=== PATIENT | male | born 1950 | race Caucasian/White ===

== ENCOUNTER 2019-12-26 07:38 | Outpatient (REF) | payer MEDICARE, SELFPAY ==
[2019-12-26 08:25] LABS: MANUAL DIFF FLAG NO
[2019-12-26 08:29] LABS: Basophils Percent Auto 0.7 % (0-2); Eosinophils Absolute Auto 0.2 X10*3/uL (0.0-0.4); Eosinophils Percent Auto 5.4 % (0-4); Hematocrit 42.4 % (42-52); Hemoglobin 14.6 g/dl (14.0-18.0); Imm Gran Abs Auto 0.01 X10*3/uL (0.00-0.03); Imm Gran Pct Auto 0.2 % (0.0-0.4); Lymphocytes Absolute Auto 1.8 X10*3/uL (1.2-4.9); Mean Corpuscular HGB Conc 34.4 g/dl (31.0-36.0); Mean Corpuscular Hemoglobin 31.5 pg (27.0-33.0); Mean Corpuscular Volume 91.6 fL (80-98); Mean Platelet Volume 9.7 fL (9.4-12.4); Monocytes Absolute Auto 0.4 X10*3/uL (0.1-1.2); Monocytes Percent Auto 9.3 % (2-11); Neutrophils Percent Auto 44.4 % (45-73); Platelet Count 198 X10*3/uL (160-400); Red Blood Count 4.63 X10*6/uL (4.60-5.80); Red Cell Distribution Width 11.6 % (11.0-16.0); White Blood Count 4.4 X10*3/uL (4.8-10.8)
[2019-12-26 08:42] LABS: Alanine Aminotransferase 26 U/L (0-40); Alkaline Phosphatase 63 U/L (39-117); Anion Gap 12 (12-20); Aspartate Amino Transferase 15 U/L (5-37); Bilirubin Total 0.4 mg/dL (0.0-1.0); Blood Urea Nitrogen 15 mg/dL (9-16); Calcium 8.5 mg/dL (8.4-10.2); Carbon Dioxide 25 mmol/L (22-29); Chloride 106 mmol/L (96-108); Cholesterol 129 mg/dL; Estimated Glomerular Filt Rate > 60; Glucose Fasting 213 mg/dL (60-99); HDL Cholesterol 40 mg/dL; LDL Cholesterol Calculated 66 mg/dl; Potassium 4.2 mmol/l (3.3-5.1); Sodium 139 mmol/L (135-145); Total Protein 6.7 g/dL (6.5-8.0); Triglycerides 115 mg/dL
[2019-12-26 08:45] LABS: Glucose Urine UA 500 MG/DL (NEG); Leukocyte Esterase Urine NEG (NEG); Nitrite Urine NEG (NEG); Specific Gravity - Urine 1.025 (1.005-1.025); Urine Blood 1+ (NEG); Urine Ketones NEG (NEG); Urine Protein NEG (NEG-TRACE)
[2019-12-26 08:48] LABS: Appearance Urine HAZY; Color Urine YELLOW
[2019-12-26 08:59] LABS: Mucus Urine 1+ /LPF; Squamous Epithelial Cell Urine TRACE /LPF; WBC Urine 0 /HPF (0-4)
[2019-12-26 09:06] LABS: TSH reflex Free T4 0.75 mIU/mL (0.32-4.0)
[2019-12-26 09:27] LABS: Creatinine Urine 114.65 mg/dL; Microalbum/Creatinine Ratio Ur 8.7 ug/mg cr
== END 2019-12-26 07:39 | disposition home or self-care (01) ==
LOC: HO.LAB 07:38
PROVIDERS: Visit Provider Internal Medicine
DX: E11.65 Type 2 diabetes mellitus with hyperglycemia (principal); I10 Essential (primary) hypertension; E78.00 Pure hypercholesterolemia, unspecified; E66.9 Obesity, unspecified
CPT/HCPCS: 36415; 80053; 80061; 81001; 82043; 84443; 85025

== ENCOUNTER 2020-01-03 14:42 | Outpatient (REF) | payer MEDICARE, SELFPAY ==
--- NOTE | 2020-01-03 14:47 | XR_ITS ---
EXAMINATION: XR CHEST CLINICAL INFORMATION: Chest pain COMPARISON: January 23, 2019 and studies dating back to March 16, 2006 TECHNIQUE: 2 views of the chest were obtained. FINDINGS: There is no evidence of acute parenchymal disease, pneumothorax, or pleural effusion. Heart normal size. No evidence of pulmonary edema. Calcified granuloma seen in the left apex. There is mild scoliosis of the thoracic spine. XR/XR chest 2V IMPRESSION: No acute disease.
--- NOTE | 2020-01-03 15:04 | ECG_ITS ---
Test Reason : CP Blood Pressure : / mmHG Vent. Rate : 073 BPM Atrial Rate : 073 BPM P-R Int : 192 ms QRS Dur : 082 ms QT Int : 394 ms P-R-T Axes : 050 033 052 degrees QTc Int : 434 ms Normal sinus rhythm Normal ECG When compared with ECG of 31-AUG-2010 15:49, Minimal criteria for Inferior infarct are no longer Present Referred By: Juan Art Electronically Signed By:CHARLIE MEZA MD
== END 2020-01-03 14:43 | disposition home or self-care (01) ==
LOC: HO.XRAY 14:42
PROVIDERS: PCP Internal Medicine; Visit Provider Internal Medicine
DX: R07.9 Chest pain, unspecified (principal); I10 Essential (primary) hypertension; E11.65 Type 2 diabetes mellitus with hyperglycemia
CPT/HCPCS: 71046; 93005

== ENCOUNTER 2020-03-02 12:28 | Outpatient (REF) | payer MEDICARE, SELFPAY ==
--- NOTE | 2020-03-02 12:39 | XR_ITS ---
EXAMINATION: RIGHT SHOULDER X-RAY CLINICAL INFORMATION: Essential primary hypertension COMPARISON: Previous chest x-rays most recent December 2019 TECHNIQUE: Two-view chest FINDINGS: The cardiac and mediastinal contours are stable. There is a small 3 x 6 mm nodular density at the left lung apex that overlies the left posterior fourth rib. This is stable from old exams. The lungs are otherwise clear. There is no pleural effusion or pneumothorax. There are degenerative changes of the spine. XR/XR shoulder RT min 2V IMPRESSION: No evidence for acute disease in the chest. EXAMINATION: Right shoulder x-ray CLINICAL INFORMATION: Essential primary hypertension COMPARISON: None. TECHNIQUE: 4 views of the right shoulder FINDINGS: Bone alignment is normal. No fracture or dislocation is seen. The glenohumeral joint is normal. There is mild arthritis at the acromioclavicular joint. Soft tissues are unremarkable. IMPRESSION: Mild arthritis at the acromioclavicular joint.
--- NOTE | 2020-03-02 12:39 | XR_ITS ---
EXAMINATION: RIGHT SHOULDER X-RAY CLINICAL INFORMATION: Essential primary hypertension COMPARISON: Previous chest x-rays most recent December 2019 TECHNIQUE: Two-view chest FINDINGS: The cardiac and mediastinal contours are stable. There is a small 3 x 6 mm nodular density at the left lung apex that overlies the left posterior fourth rib. This is stable from old exams. The lungs are otherwise clear. There is no pleural effusion or pneumothorax. There are degenerative changes of the spine. XR/XR chest 2V IMPRESSION: No evidence for acute disease in the chest. EXAMINATION: Right shoulder x-ray CLINICAL INFORMATION: Essential primary hypertension COMPARISON: None. TECHNIQUE: 4 views of the right shoulder FINDINGS: Bone alignment is normal. No fracture or dislocation is seen. The glenohumeral joint is normal. There is mild arthritis at the acromioclavicular joint. Soft tissues are unremarkable. IMPRESSION: Mild arthritis at the acromioclavicular joint.
== END 2020-03-02 12:29 | disposition home or self-care (01) ==
LOC: HO.XRAY 12:28
PROVIDERS: PCP Internal Medicine; Visit Provider Internal Medicine
DX: I10 Essential (primary) hypertension (principal)
CPT/HCPCS: 71046; 73030

== ENCOUNTER 2020-03-31 07:06 | Day surgery (SDC) | payer MEDICARE, SELFPAY ==
[2020-03-25 11:57] VITALS: BMI 31.4
--- NOTE | 2020-03-30 08:42 | HO.ANESPROP2 ---
HPI - Anesthesia Eval Consult details Narrative: 70yo M for Colonoscopy PMFSH Active Problems Active Problems: All Active Problems (Updated 03/02/20 @ 11:25 by Cosmo Napoles MD) Arthralgia of right shoulder region (Acute) Type 2 diabetes mellitus with hyperglycemia (Acute) Benign essential hypertension (Acute) Obesity (BMI 30-39.9) (Acute) Chronic pain syndrome (Acute) Pure hypercholesterolemia (Acute) Past Medical History Medical History (Updated 04/07/20 @ 09:21 by Cosmo Napoles MD) Benign essential hypertension Chronic pain syndrome Obesity (BMI 30-39.9) Pure hypercholesterolemia Type 2 diabetes mellitus with hyperglycemia Family History Family History Father No problems noted. Mother No problems noted. Sister In good health Son In good health Surgical History Surgical History History of cataract surgery Hx of colonoscopy Social History Social History Alcohol intake: never Smoking Status: Former smoker Meds Allergies Allergy/AdvReac Type Severity Reaction Status Date / Time No Known Allergies Allergy Verified 04/07/20 09:07 [No Known Allergies*] Home Medications Medication Instructions Recorded Confirmed Type metformin 1,000 mg tablet 1,000 mg PO BID 01/03/20 04/07/20 History blood sugar diagnostic #10 ea 04/07/20 04/07/20 History blood-glucose meter #1 ea 04/07/20 04/07/20 History glipizide 10 mg tablet 10 mg PO DAILY 04/07/20 04/07/20 History lisinopril 10 mg tablet 10 mg PO DAILY 04/07/20 04/07/20 History tramadol 50 mg tablet 50 mg PO BID PRN 04/07/20 04/07/20 History Exam Exam Date and Time: March 30, 2020 0842 Height,Weight and Vital Signs: Height 5 ft 6 in Weight 88.451 kg Assessment and Plan Assessment Anesthesia Assessment: Chart Reviewed
[2020-03-31 07:25] VITALS: BP 157/71; PULSE 95; RESP 16; TEMP 36.6; O2SAT 96
[2020-03-31] MEDS: Lactated Ringers 1,000 ML 100 ML IVCONT (07:26)
[2020-03-31 07:28] LABS: Glucose, Whole Blood 225 mg/dL (60-115)
--- NOTE | 2020-03-31 07:32 | PC.NURSE ---
ANIKA GIVEN FOR PRE RESULTS OF MALU CORNEJO
--- NOTE | 2020-03-31 07:33 | PC.NURSE ---
RESULTS FROM FLEET LIQUID YELLOW
--- NOTE | 2020-03-31 08:18 | MHC.SHP ---
Pre-Procedural Eval Section A The patient is an INPATIENT: No The History & Physical has been completed within 30 days and I have reviewed it.: No Section B Chief Complaint: Screening Details of Present Illness: Colon cancer screening, positive Cologuard test Relevant Family History (Specify if Yes): Yes Relevant Social History: Tobacco Use Present Medications: see Short Stay Collaborative assessment Medical History: Significant History (Obesity Diabetes Mellitus, not on insulin.. Hypertension on IBAN.. Hypercholestrolemia on statins.. Diabetic neuropathy on Neurontin.. Chronic pain from neuropathy.. Tobacco use disorder..) History of Previous Operations: Relevant previous surgery/procedure and date(s) (teeth extracted colonoscopy closer to [age] ) Allergies: Allergies Allergy/AdvReac Type Severity Reaction Status Date / Time No Known Allergies Allergy Verified 03/25/20 11:37 [No Known Allergies*] Review of Systems Sugical H&P ROS: Negative: Constitution, Cardiovascular, Respiratory and Gastrointestinal Exam Surgical H&P Exam: Normal: Heart, Normal: Lungs and Normal: Abdomen Plan Diagnosis/Plan: Unchanged I have reviewed the history and physical and performed a pertinent physical examination on my patient. No changes have occurred unless specified.
--- NOTE | 2020-03-31 08:20 | W.PM.OPN ---
Operative Note Operative Note Date of Service: 03/31/20 Narrative: Pre-op diagnosis: Colon cancer screening, positive Cologuard test Post-op diagnosis: other (Colon polyps, diverticulosis, hemorrhoids) Procedure: COLONOSCOPY TILL CECUM WITH BIOPSIES, SNARE POLYPECTOMY AND SUBMUCOSAL INJECTION Consent: Indications for the procedure and potential complications of bleeding, perforation, reaction to medications and missed diagnosis were discussed with the patient and informed consent was obtained. Instrument: Olympus PCF H 190 L variable stiffness pediatric colonoscope Monitoring: Vital signs and clinical assessment, intermittent blood pressure monitoring, continuous EKG monitoring, Pulse oximetry and Carbon Dioxide monitoring were done throughout the procedure. Colon withdrawl time was 30 minutes. Procedure: The patient was placed in the left lateral decubitis position and pre-procedure medications were administered. After a digital rectal examination of the ano-rectum, the video colonoscope was inserted into the rectum and advanced through the colon to the cecum. The colonoscope was slowly withdrawn in a retrograde panoramic fashion and the colon mucosa was carefully examined including a retroflexed view of the rectum. Findings and interventions are described below. Procedure Difficulty: Without difficulty Findings: Terminal Ileum: Not evaluated Cecum: Two 4-5 mm sessile polyp removed with a cold biopsy Ascending Colon: A 2.5 to 3 cms flat polyp raised with the 4 cc of Orise solution 9submucosal injection) and removed with a hot snare. Polypectomy site was marked with Meaghan ink. Transverse Colon: A 2 cms flat polyp in proximal transverse colon, raised with the 2 cc of Orise solution (submucosal injection) and removed with a hot snare. A 5 mm sessile polyp removed with the cold biopsy. Descending Colon: Moderate diverticulosis Sigmoid Colon: 10 mm sessile polyp removed with a hot snare. Moderate diverticulosis Rectum: Normal Ano-rectum: Moderate internal hemorrhoids Colon preparation: Good after copious irrigation and a Fleet enema. Impression and Post Procedure Diagnosis: Colonoscopy Findings: Six small to medium sized polyps removed Moderate diverticulosis seen in the left colon Moderate hemorrhoids on retroflexed exam. Plan: Await pathology results Patient has an appointment on 04/13/20 in the [facility] with Kanchan Pate NP. Repeat Colonoscopy interval based on path results - in 2 years if polyps are adenomatous and 10 years if polyps are hyperplastic. Above findings were reviewed with the patient and colon polyps and diverticulosis handouts were given in the discharge area Surgeon: Mauricio Hylton MD Anesthesia: MAC (DARRYL Najera & DR Bartlett) Estimated blood loss (mL): 0 Pathology: other (a: polyps cecum b: AC polyp at 100cm *orise gel used* c: transverse colon polyps *orise gel used* d: sigmoid polyp) Condition: stable Disposition: PACU
[2020-03-31 09:25] VITALS: BP 128/70; PULSE 81; RESP 16; TEMP 37.1; O2SAT 98
[2020-03-31 09:40] VITALS: BP 137/67; PULSE 80; RESP 18; TEMP 37.1; O2SAT 98
--- NOTE | 2020-03-31 09:47 | HO.POSTANES ---
Post Anesthesia Evaluation Post Anesthesia Evaluation Vital Signs: Vital Signs Temp Pulse Resp BP Pulse Ox 03/31/20 09:40 98.7 F 80 18 137/67 98 03/31/20 09:25 98.7 F 81 16 128/70 98 03/31/20 07:25 97.9 F 95 16 157/71 H 96 Anesthesia: Monitored Mental Status: Awake Pain Control: Satisfactory Nausea/Vomiting: None Hydration: Adequate Anesthesia-Related Issues: No Anes. Related Issues
== END 2020-03-31 10:05 | disposition home or self-care (01) ==
PROVIDERS: PCP Internal Medicine; Visit Provider Internal Medicine Gastroenterology
PROC: 0DJD8ZZ Inspection of Lower Intestinal Tract, Via Natural or Artificial Opening Endoscopic (ICD-10-PCS; CPT 45378; principal; 2020-03-31 08:10)
DX: Z12.11 Encounter for screening for malignant neoplasm of colon (principal); D12.0 Benign neoplasm of cecum; D12.3 Benign neoplasm of transverse colon; D12.5 Benign neoplasm of sigmoid colon; K57.30 Diverticulosis of large intestine without perforation or abscess without bleeding; K64.8 Other hemorrhoids; R19.5 Other fecal abnormalities; I10 Essential (primary) hypertension; E11.40 Type 2 diabetes mellitus with diabetic neuropathy, unspecified; Z79.84 Long term (current) use of oral hypoglycemic drugs; Z79.899 Other long term (current) drug therapy
CPT/HCPCS: 45380; 45385; 45381; 82947; 88305

== ENCOUNTER 2020-04-02 07:24 | Outpatient (REF) | payer MEDICARE, SELFPAY ==
[2020-04-02 08:09] LABS: MANUAL DIFF FLAG NO
[2020-04-02 08:20] LABS: Basophils Percent Auto 0.5 % (0-2); Eosinophils Absolute Auto 0.2 X10*3/uL (0.0-0.4); Eosinophils Percent Auto 3.6 % (0-4); Hematocrit 42.3 % (42-52); Hemoglobin 14.5 g/dl (14.0-18.0); Imm Gran Abs Auto 0.01 X10*3/uL (0.00-0.03); Imm Gran Pct Auto 0.2 % (0.0-0.4); Lymphocytes Absolute Auto 1.5 X10*3/uL (1.2-4.9); Lymphocytes Percent Auto 26.9 % (20-40); Mean Corpuscular HGB Conc 34.3 g/dl (31.0-36.0); Mean Corpuscular Hemoglobin 31.8 pg (27.0-33.0); Mean Corpuscular Volume 92.8 fL (80-98); Mean Platelet Volume 10.1 fL (9.4-12.4); Monocytes Absolute Auto 0.5 X10*3/uL (0.1-1.2); Monocytes Percent Auto 8.3 % (2-11); Neutrophils Absolute Auto 3.3 X10*3/uL (2.0-8.3); Neutrophils Percent Auto 60.5 % (45-73); Platelet Count 190 X10*3/uL (160-400); Red Blood Count 4.56 X10*6/uL (4.60-5.80); Red Cell Distribution Width 11.5 % (11.0-16.0); White Blood Count 5.5 X10*3/uL (4.8-10.8)
[2020-04-02 08:45] LABS: Alanine Aminotransferase 17 U/L (0-40); Albumin Level 4.1 g/dL (3.5-5.0); Alkaline Phosphatase 57 U/L (39-117); Anion Gap 11 (12-20); Aspartate Amino Transferase 11 U/L (5-37); Bilirubin Total 0.6 mg/dL (0.0-1.0); Blood Urea Nitrogen 20 mg/dL (9-16); Calcium 9.2 mg/dL (8.4-10.2); Carbon Dioxide 26 mmol/L (22-29); Chloride 107 mmol/L (96-108); Cholesterol 125 mg/dL; Estimated Glomerular Filt Rate > 60; Glucose Fasting 235 mg/dL (60-99); HDL Cholesterol 40 mg/dL; LDL Cholesterol Calculated 68 mg/dl; Potassium 4.2 mmol/L (3.3-5.1); Sodium 140 mmol/L (135-145); Total Protein 6.8 g/dL (6.5-8.0); Triglycerides 86 mg/dL
[2020-04-02 08:50] LABS: Glucose Urine UA 500 MG/DL (NEG); Leukocyte Esterase Urine NEG (NEG); Nitrite Urine NEG (NEG); Specific Gravity - Urine >= 1.030 (1.005-1.025); Urine Blood TRACE (NEG); Urine Ketones NEG (NEG); Urine Protein NEG (NEG-TRACE)
[2020-04-02 08:57] LABS: Appearance Urine CLEAR; Color Urine YELLOW
[2020-04-02 09:16] LABS: RBC Urine 0-2 /HPF (0); Squamous Epithelial Cell Urine TRACE /LPF; WBC Urine 0 /HPF (0-4)
[2020-04-02 09:17] LABS: Urine Talc Crystals TRACE /LPF
[2020-04-02 09:17] LABS: Erythrocyte Sedimentation Rate 7 MM/HR (0-15)
[2020-04-02 09:21] LABS: Creatinine Urine 125.39 mg/dL; Microalbum/Creatinine Ratio Ur 4.7 ug/mg cr
== END 2020-04-02 07:25 | disposition home or self-care (01) ==
LOC: HO.LAB 07:24
PROVIDERS: PCP Internal Medicine; Visit Provider Internal Medicine
DX: E78.00 Pure hypercholesterolemia, unspecified (principal); E11.65 Type 2 diabetes mellitus with hyperglycemia; I10 Essential (primary) hypertension; G89.4 Chronic pain syndrome; E66.9 Obesity, unspecified
CPT/HCPCS: 36415; 80053; 80061; 81001; 82043; 84443; 85025; 85652

== ENCOUNTER → 2020-04-14 09:07 | Outpatient (BNVA) | payer MEDICARE, SELFPAY | PROVIDERS: PCP Internal Medicine; Referring Provider Internal Medicine; Visit Provider Nurse Practitioner | CPT/HCPCS: Q3014 ==

== ENCOUNTER 2020-06-01 10:37 | Outpatient (REF) | payer MEDICARE, SELFPAY ==
[2020-06-01 14:25] LABS: Estimated Average Glucose 166 mg/dL; Hemoglobin A1c % 7.4 %
== END 2020-06-01 10:38 | disposition home or self-care (01) ==
LOC: HO.HMGCLDS 10:37
PROVIDERS: PCP Internal Medicine; Visit Provider Internal Medicine
DX: E11.65 Type 2 diabetes mellitus with hyperglycemia (principal)
CPT/HCPCS: 36415; 83036

== ENCOUNTER → 2020-07-09 07:53 | Outpatient (BNVA) | payer MEDICARE, SELFPAY | PROVIDERS: PCP Internal Medicine; Referring Provider Internal Medicine; Visit Provider Internal Medicine | DX: E11.65 Type 2 diabetes mellitus with hyperglycemia (principal); E78.5 Hyperlipidemia, unspecified; I10 Essential (primary) hypertension; E55.9 Vitamin D deficiency, unspecified; E04.9 Nontoxic goiter, unspecified | CPT/HCPCS: 82947; 99202 ==

== ENCOUNTER 2020-07-13 09:50 | Outpatient (REF) | payer MEDICARE, SELFPAY ==
[2020-07-13 13:46] LABS: Estimated Average Glucose 163 mg/dL; Hemoglobin A1c % 7.3 %
[2020-07-13 14:03] LABS: Alanine Aminotransferase 27 U/L (0-40); Albumin Level 4.1 g/dL (3.5-5.0); Alkaline Phosphatase 64 U/L (39-117); Anion Gap 10 (12-20); Aspartate Amino Transferase 12 U/L (5-37); Bilirubin Total 0.3 mg/dL (0.0-1.0); Blood Urea Nitrogen 19 mg/dL (9-16); Calcium 9.1 mg/dL (8.4-10.2); Carbon Dioxide 26 mmol/L (22-29); Chloride 108 mmol/L (96-108); Cholesterol 115 mg/dL; Estimated Glomerular Filt Rate > 60; Glucose Random 212 mg/dL (60-115); HDL Cholesterol 40 mg/dL; LDL Cholesterol Calculated 51 mg/dl; Potassium 4.1 mmol/L (3.3-5.1); Sodium 140 mmol/L (135-145); Total Protein 6.8 g/dL (6.5-8.0); Triglycerides 122 mg/dL
[2020-07-13 14:12] LABS: Creatinine Urine 121.85 mg/dL
[2020-07-13 14:21] LABS: Free T4 (Free Thyroxine) 0.95 ng/dL (0.71-1.85); Thyroid Stimulating Hormone 0.36 uIU/mL (0.32-4.0)
[2020-07-13 14:55] LABS: Vitamin B12 308 pg/mL (200-900)
[2020-07-14 16:57] LABS: LDL Cholesterol Direct 55 mg/dL (<100)
[2020-07-14 18:11] LABS: C Peptide 5.44 ng/mL (0.80-3.85)
[2020-07-14 18:56] LABS: Insulin Level Total 32.8 uIU/mL
[2020-07-18 19:52] LABS: Insulinoma associated 2 aatb <5.4 U/mL (<5.4)
[2020-07-18 20:16] LABS: Insulin Auto Antibody <0.4 U/mL (<0.4)
[2020-07-18 21:31] LABS: Glutamic acid decarboxylase Ab <5 IU/mL (<5)
[2020-07-22 00:02] LABS: Islet Cell Antibody Screen NEGATIVE (NEGATIVE)
== END 2020-07-13 09:51 | disposition home or self-care (01) ==
LOC: HO.10HDL 09:50
PROVIDERS: Visit Provider Internal Medicine
DX: E11.65 Type 2 diabetes mellitus with hyperglycemia (principal); E55.9 Vitamin D deficiency, unspecified; E04.9 Nontoxic goiter, unspecified
CPT/HCPCS: 36415; 80053; 80061; 82043; 82306; 82607; 83036; 83525; 83721; 84439; 84443; 84681; 86255; 86337; 86341

== ENCOUNTER 2020-07-21 10:15 | Outpatient (REF) | payer MEDICARE, SELFPAY ==
--- NOTE | ~2020-07-21 | US_ITS ---
EXAMINATION: US THYROID CLINICAL INFORMATION: Nontoxic goiter, unspecified COMPARISON: None TECHNIQUE: Linear transducer grayscale and color Doppler examination with attention to the region of the thyroid. FINDINGS: SIZE: Measurements of the thyroid lobes and nodules are given in sagittal, anteroposterior and transverse dimensions respectively. Right Thyroid Lobe: 5.3 x 2.1 x 2.4 cm, volume 13.6 mL. Parenchyma: The gland echotexture is homogeneous. Thyroid vascularity is normal. Left Thyroid Lobe: 4.8 x 2.7 x 2.1 cm, volume 13.8 mL. Parenchyma: The gland echotexture is homogeneous. Thyroid vascularity is normal. Isthmus: 0.6 cm in maximum AP dimension. Estimated total number of nodules greater than or equal to 1 cm: 0. License Registration Examiner nodules are described as follows: There is a tiny simple cyst and a colloid cyst midpole laterally in the right thyroid lobe. No nodules seen in either lobes. NODES: No lymphadenopathy is seen in the tissue surrounding the thyroid gland. US/US thyroid IMPRESSION: No thyroid nodules visualized. Both lobes are enlarged likely goiter. 2 small cysts seen in midpole right thyroid lobe. ACR TI-RADS RECOMMENDATION REFERENCE: Ultrasound-guided fine-needle aspiration, followup ultrasound, no further follow up. * TR1 (0 point) and TR 2 (2 points): No FNA or follow up * TR3 (3 points): FNA if more than or equal to 2.5 cm in maximum dimension, followup ultrasound in 1, 3 and 5 years if 1.5 to 2.4 cm in maximum dimension. * TR4 (4-6 points): FNA if more than or equal to 1.5 cm in maximum dimension, followup ultrasound in 1, 2, 3 and 5 years if 1 to 1.4 cm in maximum dimension. * TR5 (more than or equal to 7 points): FNA if more than or equal to 1 cm in maximum dimension, followup ultrasound every year for 5 years if 0.5 to 0.9 cm in maximum dimension. * TR3, TR4 or TR5 nodules that are below the size threshold for follow up receive no follow up.
== END 2020-07-21 10:16 | disposition home or self-care (01) ==
LOC: HO.US 10:15
PROVIDERS: PCP Internal Medicine; Visit Provider Internal Medicine
DX: E04.9 Nontoxic goiter, unspecified (principal)
CPT/HCPCS: 76536

== ENCOUNTER → 2020-08-07 10:54 | Outpatient (BNVA) | payer MEDICARE, SELFPAY | PROVIDERS: PCP Internal Medicine; Visit Provider Dietitian, Registered | DX: E11.65 Type 2 diabetes mellitus with hyperglycemia (principal) | CPT/HCPCS: 97802 ==

== ENCOUNTER 2020-08-12 08:20 | Outpatient (REF) | payer MEDICARE, SELFPAY ==
[2020-08-12 10:48] LABS: Glucose Urine UA >=1000 MG/DL (NEG); Leukocyte Esterase Urine NEG (NEG); Nitrite Urine NEG (NEG); Urine Blood TRACE (NEG); Urine Ketones NEG (NEG); Urine Protein NEG (NEG-TRACE)
[2020-08-12 10:49] LABS: Appearance Urine CLEAR; Color Urine STRAW
[2020-08-12 10:52] LABS: Alanine Aminotransferase 19 U/L (0-40); Albumin Level 4.4 g/dL (3.5-5.0); Alkaline Phosphatase 65 U/L (39-117); Anion Gap 12 (12-20); Aspartate Amino Transferase 13 U/L (5-37); Bilirubin Total 0.6 mg/dL (0.0-1.0); Blood Urea Nitrogen 19 mg/dL (9-16); Calcium 9.4 mg/dL (8.4-10.2); Carbon Dioxide 24 mmol/L (22-29); Chloride 110 mmol/L (96-108); Estimated Glomerular Filt Rate > 60; Glucose Random 162 mg/dL (60-115); Potassium 4.1 mmol/L (3.3-5.1); Sodium 142 mmol/L (135-145); Total Protein 7.2 g/dL (6.5-8.0)
[2020-08-12 11:02] LABS: RBC Urine 0-2 /HPF (0); WBC Urine 0 /HPF (0-4)
[2020-08-12 11:17] LABS: Creatinine Urine 66.88 mg/dL
== END 2020-08-12 08:21 | disposition home or self-care (01) ==
LOC: HO.10HDL 08:20
PROVIDERS: Internal Medicine; Visit Provider Internal Medicine
DX: E11.65 Type 2 diabetes mellitus with hyperglycemia (principal)
CPT/HCPCS: 36415; 80053; 81001

== ENCOUNTER 2020-09-01 06:29 | Outpatient (REF) | payer MEDICARE, SELFPAY ==
[2020-09-03 05:31] LABS: Lyme Abs Screen <0.90 index
== END 2020-09-01 06:30 | disposition home or self-care (01) ==
LOC: HO.LAB 06:29
PROVIDERS: PCP Internal Medicine; Visit Provider Internal Medicine
DX: A69.20 Lyme disease, unspecified (principal)
CPT/HCPCS: 36415; 86617; 86618

== ENCOUNTER → 2020-09-14 08:12 | Outpatient (BNVA) | payer MEDICARE, SELFPAY | PROVIDERS: PCP Internal Medicine; Visit Provider Internal Medicine | DX: E11.65 Type 2 diabetes mellitus with hyperglycemia (principal); E78.5 Hyperlipidemia, unspecified; E55.9 Vitamin D deficiency, unspecified; I10 Essential (primary) hypertension | CPT/HCPCS: 82947; 99212 ==

== ENCOUNTER 2021-01-07 10:31 | Outpatient (REF) | payer MEDICARE, SELFPAY ==
[2021-01-07 11:17] LABS: Hemoglobin 15.1 g/dl (14.0-18.0); Mean Corpuscular HGB Conc 33.6 g/dl (31.0-36.0); Mean Corpuscular Hemoglobin 30.7 pg (27.0-33.0); Mean Corpuscular Volume 91.5 fL (80.0-98.0); Mean Platelet Volume 10.3 fL (9.4-12.4); Platelet Count 197 X10*3/uL (160-400); Red Blood Count 4.92 X10*6/uL (4.60-5.80); Red Cell Distribution Width 11.9 % (11.0-16.0); White Blood Count 4.7 X10*3/uL (4.8-10.8)
[2021-01-07 11:26] LABS: Estimated Average Glucose 194 mg/dL; Hemoglobin A1c % 8.4 %
[2021-01-07 12:35] LABS: Appearance Urine CLEAR; Color Urine YELLOW; Glucose Urine UA >=1000 MG/DL (NEG); Leukocyte Esterase Urine NEG (NEG); Nitrite Urine NEG (NEG); Urine Blood TRACE (NEG); Urine Ketones NEG (NEG); Urine Protein NEG (NEG-TRACE)
[2021-01-07 13:13] LABS: RBC Urine 0-2 /HPF (0); WBC Urine 0-2 /HPF (0-4)
[2021-01-07 13:13] LABS: Alanine Aminotransferase 31 U/L (0-40); Albumin Level 4.1 g/dL (3.5-5.0); Alkaline Phosphatase 86 U/L (39-117); Anion Gap 11 (12-20); Aspartate Amino Transferase 16 U/L (5-37); Bilirubin Direct 0.2 mg/dL (0.0-0.5); Bilirubin Total 0.3 mg/dL (0.0-1.0); Blood Urea Nitrogen 18 mg/dL (9-16); Calcium 9.1 mg/dL (8.4-10.2); Carbon Dioxide 24 mmol/L (22-29); Chloride 109 mmol/L (96-108); Cholesterol 111 mg/dL; Estimated Glomerular Filt Rate > 60; Glucose Random 311 mg/dL (60-115); HDL Cholesterol 35 mg/dL; LDL Cholesterol Calculated 62 mg/dl; Potassium 4.7 mmol/L (3.3-5.1); Sodium 139 mmol/L (135-145); Triglycerides 70 mg/dL
[2021-01-07 13:14] LABS: Creatinine Urine 59.67 mg/dL; Microalbum/Creatinine Ratio Ur 8.3 ug/mg cr
[2021-01-07 13:24] LABS: Thyroid Stimulating Hormone 0.48 uIU/mL (0.32-4.0); Vitamin D 25-OH Total 20.2 ng/mL (>30)
[2021-01-07 13:28] LABS: Prostate Specific Antigen Scr 2.62 ng/mL (<0.05-4.0)
== END 2021-01-07 10:32 | disposition home or self-care (01) ==
LOC: HO.LAB 10:31
PROVIDERS: Internal Medicine; PCP Internal Medicine; Visit Provider Internal Medicine
DX: E11.65 Type 2 diabetes mellitus with hyperglycemia (principal); E55.9 Vitamin D deficiency, unspecified; E78.00 Pure hypercholesterolemia, unspecified
CPT/HCPCS: 36415; 80053; 80061; 81001; 82043; 82248; 82306; 83036; 84153; 84443; 85027

== ENCOUNTER 2021-04-13 07:17 | Outpatient (REF) | payer MEDICARE, SELFPAY ==
[2021-04-13 07:47] LABS: Hematocrit 45.1 % (42.0-52.0); Hemoglobin 15.5 g/dl (14.0-18.0); Mean Corpuscular HGB Conc 34.4 g/dl (31.0-36.0); Mean Corpuscular Hemoglobin 31.8 pg (27.0-33.0); Mean Corpuscular Volume 92.6 fL (80.0-98.0); Mean Platelet Volume 9.6 fL (9.4-12.4); Platelet Count 217 X10*3/uL (160-400); Red Blood Count 4.87 X10*6/uL (4.60-5.80); Red Cell Distribution Width 11.9 % (11.0-16.0); White Blood Count 5.2 X10*3/uL (4.8-10.8)
[2021-04-13 08:19] LABS: Estimated Average Glucose 163 mg/dL; Hemoglobin A1c % 7.3 %
[2021-04-13 08:48] LABS: Alanine Aminotransferase 18 U/L (0-40); Albumin Level 4.2 g/dL (3.5-5.0); Alkaline Phosphatase 65 U/L (39-117); Anion Gap 14 (12-20); Aspartate Amino Transferase 12 U/L (5-37); Bilirubin Total 0.5 mg/dL (0.0-1.0); Blood Urea Nitrogen 21 mg/dL (9-16); Calcium 9.6 mg/dL (8.4-10.2); Carbon Dioxide 23 mmol/L (22-29); Chloride 110 mmol/L (96-108); Cholesterol 97 mg/dL; Estimated Glomerular Filt Rate > 60; Glucose Fasting 173 mg/dL (60-99); HDL Cholesterol 33 mg/dL; LDL Cholesterol Calculated 49 mg/dl; Potassium 4.4 mmol/L (3.3-5.1); Sodium 143 mmol/L (135-145); Triglycerides 75 mg/dL
[2021-04-13 09:07] LABS: TSH reflex Free T4 0.61 uIU/mL (0.32-4.0)
[2021-04-13 10:11] LABS: Creatinine Urine 196.83 mg/dL; Microalbum/Creatinine Ratio Ur 7.1 ug/mg cr
== END 2021-04-13 07:18 | disposition home or self-care (01) ==
LOC: HO.LAB 07:17
PROVIDERS: PCP Internal Medicine; Visit Provider Internal Medicine
DX: E11.65 Type 2 diabetes mellitus with hyperglycemia (principal); E78.00 Pure hypercholesterolemia, unspecified; I10 Essential (primary) hypertension; G62.9 Polyneuropathy, unspecified
CPT/HCPCS: 36415; 80053; 80061; 82043; 83036; 84443; 85027

== ENCOUNTER → 2021-08-17 13:40 | Outpatient (BNVA) | payer MEDICARE, SELFPAY | PROVIDERS: PCP Internal Medicine; Visit Provider Psychiatry & Neurology Neurology | DX: G25.0 Essential tremor (principal); G62.9 Polyneuropathy, unspecified; M13.871 Other specified arthritis, right ankle and foot; Z79.891 Long term (current) use of opiate analgesic | CPT/HCPCS: 99202 ==

== ENCOUNTER 2021-10-08 08:43 | Outpatient (REF) | payer MEDICARE, SELFPAY ==
--- NOTE | ~2021-10-08 | FL_ITS ---
EXAMINATION: FL BARIUM SWALLOW CLINICAL INFORMATION: Dysphasia. COMPARISON: None TECHNIQUE: Barium swallow examination is performed using fluoroscopic evaluation in addition to multiple fluoroscopic spot views. The patient is imaged both upright and prone and using both thick and thin sulfate along with half inch diameter barium tablet. Fluoroscopy Time: 1.7 minutes. DAP: 5.172 Gycm2. Images: 33. FINDINGS: There is normal apposition of the focal cords while saying E. There is normal elevation of the soft palate while saying candy. There is no evidence of nasopharyngeal reflux or tracheal aspiration. No evidence of Zenker's diverticulum. There is normal esophageal motility without persistent stricture or tertiary contractions. No gastroesophageal reflux. No mucosal abnormality appreciated. Half-inch diameter barium tablet passed without difficulty. FL/FL barium swallow IMPRESSION: Essentially unremarkable esophagram.
== END 2021-10-08 08:44 | disposition home or self-care (01) ==
LOC: HO.XRAY 08:43
PROVIDERS: Visit Provider Internal Medicine
DX: R13.10 Dysphagia, unspecified (principal)
CPT/HCPCS: 74220

== ENCOUNTER 2021-10-29 08:38 | Outpatient (REF) | payer MEDICARE, SELFPAY ==
--- NOTE | 2021-10-29 13:52 | PFT_ITS ---
FLOWS: FEV1 71% of predicted at 1.98 L. FVC 95% of predicted at 3.66 L. FEV1 to FVC ratio of 0.54. Positive bronchodilator response. LUNG VOLUMES: Total lung capacity 97% of predicted at 6.29 L. Residual volume 127% of predicted at 2.99 L. Slow vital capacity 80% of predicted at 3.29 L. Expiratory reserve volume 77% of predicted at 0.82 L. Diffusion capacity is mildly decreased, diffusion capacity corrects to normal after adjustment for alveolar ventilation. IMPRESSION: Moderate obstructive ventilatory defect with positive bronchodilator response. Increased residual volume suggests air trapping. Kin Amador MD AP/MODL / [id number]
== END 2021-10-29 08:39 | disposition home or self-care (01) ==
LOC: HO.RESP 08:38
PROVIDERS: PCP Internal Medicine; Visit Provider Internal Medicine
DX: R05.9 Cough, unspecified (principal)
CPT/HCPCS: 94060; 94727; 94729

== ENCOUNTER 2021-11-06 08:13 | Outpatient (REF) | payer MEDICARE, SELFPAY ==
[2021-11-06 11:28] LABS: Estimated Average Glucose 143 mg/dL; Hemoglobin A1c % 6.6 %
[2021-11-06 11:40] LABS: Alanine Aminotransferase 26 U/L (0-40); Albumin Level 4.3 g/dL (3.5-5.0); Alkaline Phosphatase 72 U/L (39-117); Anion Gap 16 (12-20); Aspartate Amino Transferase 14 U/L (5-37); Bilirubin Total 0.5 mg/dL (0.0-1.0); Blood Urea Nitrogen 19 mg/dL (9-16); Calcium 9.7 mg/dL (8.4-10.2); Carbon Dioxide 25 mmol/L (22-29); Chloride 105 mmol/L (96-108); Cholesterol 106 mg/dL; Estimated Glomerular Filt Rate > 60; Glucose Fasting 180 mg/dL (60-99); HDL Cholesterol 37 mg/dL; LDL Cholesterol Calculated 57 mg/dl; Potassium 5.2 mmol/L (3.3-5.1); Sodium 141 mmol/L (135-145); Total Protein 7.1 g/dL (6.5-8.0); Triglycerides 63 mg/dL
[2021-11-06 11:50] LABS: Creatinine Urine 112.31 mg/dL; Microalbum/Creatinine Ratio Ur 7.1 ug/mg cr
== END 2021-11-06 08:14 | disposition home or self-care (01) ==
LOC: HO.HMGCLDS 08:13
PROVIDERS: PCP Internal Medicine; Visit Provider Internal Medicine
DX: R13.10 Dysphagia, unspecified (principal); I10 Essential (primary) hypertension; E78.5 Hyperlipidemia, unspecified; E11.65 Type 2 diabetes mellitus with hyperglycemia
CPT/HCPCS: 36415; 80053; 80061; 82043; 83036; 84443

== ENCOUNTER → 2021-11-16 10:13 | Outpatient (BNVA) | payer MEDICARE, SELFPAY | PROVIDERS: PCP Internal Medicine; Visit Provider Psychiatry & Neurology Neurology | DX: R25.1 Tremor, unspecified (principal); G62.9 Polyneuropathy, unspecified | CPT/HCPCS: 99212 ==

== ENCOUNTER 2021-11-26 10:39 | Outpatient (REF) | payer MEDICARE, SELFPAY ==
[2021-11-26 15:04] LABS: Folate 8.7 ng/mL (> or = 4.0); Vitamin B12 267 pg/mL (200-900)
== END 2021-11-26 10:40 | disposition home or self-care (01) ==
LOC: HO.HMGCLDS 10:39
PROVIDERS: PCP Internal Medicine; Visit Provider Internal Medicine
DX: Z00.00 Encounter for general adult medical examination without abnormal findings (principal); Z13.21 Encounter for screening for nutritional disorder
CPT/HCPCS: 36415; 82607; 82746

== ENCOUNTER 2022-01-21 07:35 | Outpatient (REF) | payer MEDICARE, SELFPAY ==
[2022-01-21 07:54] LABS: MANUAL DIFF FLAG NO
[2022-01-21 08:13] LABS: Basophils Percent Auto 0.8 % (0-2); Eosinophils Absolute Auto 0.2 X10*3/uL (0.0-0.4); Eosinophils Percent Auto 4.1 % (0-4); Hematocrit 47.1 % (42.0-52.0); Hemoglobin 15.8 g/dl (14.0-18.0); Imm Gran Abs Auto 0.02 X10*3/uL (0.00-0.03); Imm Gran Pct Auto 0.4 % (0.0-0.4); Lymphocytes Absolute Auto 1.6 X10*3/uL (1.2-4.9); Lymphocytes Percent Auto 30.8 % (20-40); Mean Corpuscular HGB Conc 33.5 g/dl (31.0-36.0); Mean Corpuscular Hemoglobin 31.2 pg (27.0-33.0); Mean Corpuscular Volume 93.1 fL (80.0-98.0); Mean Platelet Volume 9.7 fL (9.4-12.4); Monocytes Absolute Auto 0.5 X10*3/uL (0.1-1.2); Monocytes Percent Auto 8.8 % (2-11); Neutrophils Absolute Auto 2.9 x10*3/uL (2.0-8.3); Neutrophils Percent Auto 55.1 % (45-73); Platelet Count 218 X10*3/uL (160-400); Red Blood Count 5.06 X10*6/uL (4.60-5.80); Red Cell Distribution Width 11.8 % (11.0-16.0); White Blood Count 5.3 X10*3/uL (4.8-10.8)
[2022-01-21 08:29] LABS: Estimated Average Glucose 151 mg/dL; Hemoglobin A1c % 6.9 %
[2022-01-21 08:58] LABS: Alanine Aminotransferase 18 U/L (0-40); Albumin Level 4.2 g/dL (3.5-5.0); Alkaline Phosphatase 65 U/L (39-117); Anion Gap 10 (12-20); Aspartate Amino Transferase 10 U/L (5-37); Bilirubin Total 0.6 mg/dL (0.0-1.0); Blood Urea Nitrogen 18 mg/dL (9-16); Calcium 9.7 mg/dL (8.4-10.2); Carbon Dioxide 28 mmol/L (22-29); Chloride 105 mmol/L (96-108); Estimated Glomerular Filt Rate > 60; Glucose Fasting 138 mg/dL (60-99); Glucose Random 138 mg/dL (60-115); Potassium 4.7 mmol/L (3.3-5.1); Sodium 138 mmol/L (135-145); Total Protein 6.8 g/dL (6.5-8.0)
== END 2022-01-21 07:36 | disposition home or self-care (01) ==
LOC: HO.LAB 07:35
PROVIDERS: PCP Internal Medicine; Referring Provider Internal Medicine; Visit Provider Internal Medicine
DX: Z00.00 Encounter for general adult medical examination without abnormal findings (principal); I10 Essential (primary) hypertension; E11.65 Type 2 diabetes mellitus with hyperglycemia
CPT/HCPCS: 36415; 80048; 80053; 83036; 85025

== ENCOUNTER → 2022-03-03 09:24 | Outpatient (BNVA) | payer MEDICARE, SELFPAY | PROVIDERS: PCP Internal Medicine; Visit Provider Nurse Practitioner Family | DX: M79.604 Pain in right leg (principal); M79.605 Pain in left leg; E11.40 Type 2 diabetes mellitus with diabetic neuropathy, unspecified | CPT/HCPCS: 99202 ==

== ENCOUNTER → 2022-04-05 10:45 | Outpatient (BNVA) | payer MEDICARE, SELFPAY | PROVIDERS: PCP Internal Medicine; Visit Provider Nurse Practitioner Family | DX: E11.40 Type 2 diabetes mellitus with diabetic neuropathy, unspecified (principal); G89.4 Chronic pain syndrome | CPT/HCPCS: 99212; J7336 ==

== ENCOUNTER 2022-05-18 08:41 | Outpatient (REF) | payer MEDICARE, SELFPAY ==
--- NOTE | 2022-05-18 09:04 | EMG_ITS ---
Please see scanned EMG / Nerve Conduction Report. MTDD
== END 2022-05-18 08:42 | disposition home or self-care (01) ==
LOC: HO.NEURO 08:41
PROVIDERS: PCP Internal Medicine; Visit Provider Nurse Practitioner Family
DX: G62.9 Polyneuropathy, unspecified (principal); M79.604 Pain in right leg; M79.605 Pain in left leg
CPT/HCPCS: 95885; 95911

== ENCOUNTER → 2022-05-31 14:07 | Outpatient (BNVA) | payer MEDICARE, SELFPAY | PROVIDERS: PCP Internal Medicine; Visit Provider Nurse Practitioner Family | DX: G57.31 Lesion of lateral popliteal nerve, right lower limb (principal); E11.40 Type 2 diabetes mellitus with diabetic neuropathy, unspecified; G89.4 Chronic pain syndrome | CPT/HCPCS: 99212 ==

== ENCOUNTER → 2022-06-28 08:51 | Outpatient (BNVA) | payer MEDICARE, SELFPAY | PROVIDERS: PCP Internal Medicine; Visit Provider Nurse Practitioner Family | DX: E11.40 Type 2 diabetes mellitus with diabetic neuropathy, unspecified (principal); G57.31 Lesion of lateral popliteal nerve, right lower limb; G89.4 Chronic pain syndrome | CPT/HCPCS: 17999; 99212; J7336 ==

== ENCOUNTER 2022-07-21 10:42 | Outpatient (REF) | payer MEDICARE, SELFPAY ==
[2022-07-21 13:16] LABS: Appearance Urine Clear; Color Urine Yellow; Glucose Urine UA >=1000 mg/dL (Negative); Leukocyte Esterase Urine Negative (Negative); Nitrite Urine Negative (Negative); PH 5.5 (5.0-9.0); Specific Gravity - Urine >= 1.030 (1.005-1.025); UMIC TRIGGER UACC YES; Urine Blood Small (1+) (Negative); Urine Ketones Negative (Negative); Urine Protein Negative (Neg-Trace)
[2022-07-21 13:26] LABS: Bacteria Urine None Seen (None Seen); Hyaline Casts Urine 0-2 /LPF (0-2); RBC Urine 0-2 /HPF (0-2); Squamous Epithelial Cell Urine 0-2 /HPF (0-2); WBC Urine 0-5 /HPF (0-5)
== END 2022-07-21 10:43 | disposition home or self-care (01) ==
LOC: HO.LAB 10:42
PROVIDERS: PCP Internal Medicine; Visit Provider Internal Medicine
DX: R39.9 Unspecified symptoms and signs involving the genitourinary system (principal)
CPT/HCPCS: 81001; 81003

== ENCOUNTER 2022-08-18 13:19 | Outpatient (AMB) | payer MEDICARE, SELFPAY ==
--- NOTE | 2022-08-18 13:30 | MHC.PC.OV ---
Vital Signs 08/18/22 13:32 Height 5 ft 6 in Weight 181 lb BMI 29.2 BP 140/70 H Blood Pressure Location Lt brachial Position Sitting Pulse 78 Pulse Source Pulse Oximeter Pulse Oximetry (%) 98 Oxygen Delivery Method Room Air Intake Visit Reasons: High Blood Sugar Intake Note: Patient is here to follow up on DM. Kennel Assistant Required: No Rug Sizer: Not Required per policy Accompanied by: Self / Same As Patient Allergies No Known Allergies [No Known Allergies*] Allergy (Verified 09/02/22 16:44) Medication List - Last Reconciled 09/02/22 by Cosmo Napoles MD atorvastatin 40 mg PO DAILY 30 days blood sugar diagnostic As directed blood-glucose meter As directed dulaglutide (Trulicity) 3 mg (0.5 mL) subcut QWEEK 30 days gabapentin 300 mg PO BID glipizide 10 mg PO DAILY lisinopril 5 mg PO DAILY metformin 1,000 mg PO BID tramadol 50 mg PO DAILY Tobacco use date assessed: 08/18/22 Fall risk assessment: No Falls in past year Last assessed Fall Risk: 08/18/22 Dental Screening Dental Screen Date: 08/18/22 Did you have a dental visit in the last 12 months?: No Did you have a dental problem in the last 6 months where you did not have access to dental care?: No Was dental information given to patient?: No HPI High Blood Sugar HPI Details 72-year-old male presents to the office to discuss his chronic medical conditions. Patient does elevated blood sugars but is still reluctant to take the medications as prescribed. [facility] Medical History Benign essential hypertension Chronic pain syndrome Dysphagia Foot pain, right Goiter HLD (hyperlipidemia) HTN (hypertension) Lyme disease Neuropathy Obesity (BMI 30-39.9) Pure hypercholesterolemia Tremor Tubular adenoma of colon Type 2 diabetes mellitus with hyperglycemia Vitamin D deficiency Surgical History History of cataract surgery Hx of colonoscopy Family History Father No problems noted. Mother No problems noted. Sister In good health Son In good health Social History Housing: House Alcohol intake: current Alcohol intake frequency: does not drink Patient Tobacco Use Status: Former Tobacco user Quit Date: 2018 e-Cigarette/Vaping Use: Never Used Second Hand Smoke Exposure: No service: No Current occupational status: retired Cognitive needs: No Hearing needs: No Vision needs: No Questionnaire Thrive Questionnaire Date Thrive assessed: 08/18/22 I am a: Patient What is your living situation today?: I have a steady place to live Within the past 12 months, did the food you bought not last and you didn't have the money to get more?: Never true Within the past 12 months, did you worry whether your food would run out before you got money to buy more?: Never true Do you have trouble paying for medicines?: No Do you have trouble getting transportation to medical appointments?: No Do you have trouble paying your heating and electricity bill?: No Do you have trouble taking care of your child, family member or friend?: No Do you have trouble with day-to-day activities such as bathing, preparing meals, shopping, managing finances, etc.?: No Are you currently unemployed and looking for a job?: No Are you interested in more education?: No Currently or been in a relationship where the following occur: no concerns reported AUDIT C Alcohol Use Questionnaire (AUDIT-C) 1. How often do you have a drink containing alcohol?: Never Total Score: 0 GARRICK-7 AMB Questionnaire GARRICK-7 Date GARRICK - 7 assessed: 08/18/22 Feeling nervous, anxious, or on edge: 0 = Not at all Not being able to stop or control worryin = Not at all Worrying too much about different things: 0 = Not at all Trouble relaxin = Not at all Being so restless that it is hard to sit still: 0 = Not at all Becoming easily annoyed or irritable: 0 = Not at all Feeling afraid as if something awful might happen: 0 = Not at all Total GARRICK-7 score (0-4 normal; 5-9 mild; 10-14 moderate; 15-21 severe): 0 Source: Developed by Drs. Heriberto Gonzalez, Keerthi Reeves, Rolando Wilhelm and colleagues, with an educational murtaza from [employer]. Physical exam (Primary Care) Vital Signs: Last Vital Signs Pulse 78 08/18/22 13:32 BP 140/70 H 08/18/22 13:32 Pulse Ox 98 08/18/22 13:32 Oxygen Delivery Method Room Air 08/18/22 13:32 BMI result Body Mass Index 29.2 Tobacco/Smoking Status: Tobacco use Status Tobacco use date assessed 08/18/22 08/18/22 13:41 Patient Tobacco Use Status Former Tobacco user 08/18/22 13:41 e-Cigarette/Vaping Use Never Used 08/18/22 13:41 Thrive Assessment: Date of Thrive Assessment Date Thrive assessed 08/18/22 08/18/22 13:41 Currently or been in a relationship where the following occur: no concerns reported Const General: cooperative, healthy appearing and comfortable HENMT Head: Yes normal to inspection and Yes atraumatic Eyes General: appearance normal, both eyes and all related structures Neck Neck: Yes normal visual inspection and Yes full ROM Chest Chest palpation & inspection: normal inspection of the chest Resp Effort & Inspection: normal respiratory effort Auscultation: clear to auscultation bilaterally Cardio Jugular venous distension: no JVD Palpation: normal PMI Rate: regular rate Heart sounds: S1 normal heart sound present and S2 normal heart sound present GI Palpation (GI): Soft to palpation and No hepatosplenomegaly present Extrem General: Yes normal to inspection and Yes full ROM Results AMB Hemoglobin A1c AMB Hemoglobin A1c 8.2 % Last Edit by ELIAN Gillette on 08/18/22 13:44 Results Reviewed Results Reviewed: Laboratory Last Values Hgb A1c (Clinic) 8.2 % (4.0-6.0) H 08/18/22 13:29 Assessment and Plan Assessment & Plan (1) Type 2 diabetes mellitus with hyperglycemia: Comment: NIDDM, >10 years Code(s): E11.65 - Type 2 diabetes mellitus with hyperglycemia Qualifiers: Diabetes mellitus extermination inspector insulin use: without assisted use Qualified Code(s): E11.65 - Type 2 diabetes mellitus with hyperglycemia Plan: Results of the blood work and my recommendations on how to treated was suggested to the patient. He will decide on how he wants to take medications. Orders: Orders AMB Hemoglobin A1c 08/18/22 E11.65 - Type 2 diabetes mellitus with hyperglycemia Medications: New glipizide 10 mg PO DAILY 90 tabs 1RF Discontinued glipizide Discontinued Reason: Doctor's Order 5 mg PO DAILY 90 tabs 1RF Coding Level of Care Code Est Pt Level 3 (99318) Diagnoses Type 2 diabetes mellitus with hyperglycemia E11.65 Diabetes mellitus assisted insulin use: without assisted use
[2022-08-18 13:32] VITALS: BP 140/70; PULSE 78; O2SAT 98; BMI 29.2
== END 2022-08-18 14:03 | disposition home or self-care (01) ==
PROVIDERS: PCP Internal Medicine; Visit Provider Internal Medicine
DX: E11.65 Type 2 diabetes mellitus with hyperglycemia (principal)
CPT/HCPCS: 83036; 99213

== ENCOUNTER 2022-09-26 08:26 | Outpatient (AMB) | payer MEDICARE, SELFPAY ==
--- NOTE | 2022-09-26 08:39 | MHC.PC.OV ---
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 Accompanied by: Self / Same As Patient Allergies No Known Allergies [No Known Allergies*] Allergy (Verified 09/26/22 08:40) Medication List - Last Reconciled 09/26/22 by Pérez Taylor MD atorvastatin 40 mg PO DAILY 30 days blood sugar diagnostic As directed blood-glucose meter As directed dulaglutide (Trulicity) 3 mg (0.5 mL) subcut QWEEK 30 days gabapentin 300 mg PO BID glipizide 10 mg PO DAILY lisinopril 5 mg PO DAILY metformin 1,000 mg PO BID tramadol 50 mg PO DAILY Tobacco use date assessed: 08/18/22 Fall risk assessment: No Falls in past year Last assessed Fall Risk: 09/26/22 Dental Screening Dental Screen Date: 09/26/22 Did you have a dental visit in the last 12 months?: Yes Did you have a dental problem in the last 6 months where you did not have access to dental care?: No Was dental information given to patient?: Patient has dentist HPI Cataract surgery on left eye-09/28 HPI Details having a cataract repair; has DM HTN and hyperlipidemia; no history of CAD PFSH Medical History Benign essential hypertension Chronic pain syndrome Dysphagia Foot pain, right Goiter HLD (hyperlipidemia) HTN (hypertension) Lyme disease Neuropathy Obesity (BMI 30-39.9) Pure hypercholesterolemia Tremor Tubular adenoma of colon Type 2 diabetes mellitus with hyperglycemia Vitamin D deficiency Surgical History History of cataract surgery Hx of colonoscopy Family History Father No problems noted. Mother No problems noted. Sister In good health Son In good health Social History Housing: House Alcohol intake: current Alcohol intake frequency: does not drink Patient Tobacco Use Status: Former Tobacco user Quit Date: 2018 Tobacco use type: Cigarette e-Cigarette/Vaping Use: Never Used Second Hand Smoke Exposure: No service: No Current occupational status: retired Cognitive needs: No Hearing needs: No Vision needs: No Questionnaire PHQ-9 Over the last 2 weeks, how often have you been bothered by any of the following problems? 1. Little interest or pleasure in doing things: not at all 2. Feeling down, depressed, or hopeless: not at all 3. Trouble falling or staying asleep, or sleeping too much: not at all 4. Feeling tired or having little energy: not at all 5. Poor appetite or overeating: not at all 6. Feeling bad about yourself - or that you are a failure or have let yourself or your family down: not at all 7. Trouble concentrating on things, such as reading the newspaper or watching television: not at all 8. Moving or speaking so slowly that other people could have noticed. Or the opposite - being so fidgety or restless that you have been moving around a lot more than usual: not at all 9. Thoughts that you would be better off or of hurting yourself in some way: not at all Total score: 0 Depression Screening Interpretation: Negative Source: Developed by Drs. Heriberto Gonzalez, Rolando Zuniga and colleagues, with an educational murtaza from [employer]. Thrive Questionnaire Date Thrive assessed: 08/18/22 AUDIT C Alcohol Use Questionnaire (AUDIT-C) 1. How often do you have a drink containing alcohol?: Never Total Score: 0 GARRICK-7 AMB Questionnaire GARRICK-7 Date GARRICK - 7 assessed: 08/18/22 Source: Developed by Drs. Heriberto Gonzaelz, Rolando Zuniga and colleagues, with an educational murtaza from [employer]. Review of Systems Const Denies chills, Denies fatigue, Denies headache(s) and Denies weight loss Eyes Denies change in vision, Denies diplopia and Denies eye pain ENT Denies vertigo, Denies dizziness, Denies headache(s) and Denies nasal discharge Card Denies chest pain, Denies rapid heart rate and Denies dyspnea on exertion Resp Denies chest congestion, Denies cough, Denies pain with cough and Denies dyspnea on exertion GI Denies abdominal pain, Denies hematochezia and Denies change in bowel habits Musc Denies myalgias, Denies arthralgias and Denies joint swelling Skin/Breast Denies lesions and Denies unusual bruising Neuro Denies vertigo, Denies dizziness, Denies headache(s) and Denies focal weakness Endo Denies fatigue Physical exam (Primary Care) Vital Signs: Last Vital Signs Pulse 82 09/26/22 08:40 BP 128/68 09/26/22 08:40 Pulse Ox 97 09/26/22 08:40 Oxygen Delivery Method Room Air 09/26/22 08:40 BMI result Body Mass Index 28.6 Tobacco/Smoking Status: Tobacco use Status Tobacco use date assessed 08/18/22 09/26/22 08:39 Patient Tobacco Use Status Former Tobacco user 09/26/22 08:39 Tobacco use type Cigarette 09/26/22 08:43 e-Cigarette/Vaping Use Never Used 09/26/22 08:39 PHQ-9: PHQ-9 Score PHQ-9: Total score 0 09/26/22 08:43 Depression Screening Interpretation: Negative Thrive Assessment: Date of Thrive Assessment Date Thrive assessed 08/18/22 09/26/22 08:39 Const General: cooperative, healthy appearing and no acute distress Orientation/consciousness: oriented to person, oriented to place and oriented to time [facility] Head: Yes normal to inspection, Yes normocephalic and Yes atraumatic Mouth: Normal oral and palatal mucosa present and tongue normal Throat: Yes posterior oropharynx normal and Yes uvula midline Eyes General: appearance normal, both eyes and all related structures Neck Neck: Yes normal visual inspection, Yes full ROM and Yes no lymphadenopathy Thyroid: Thyroid normal Carotids: normal carotid upstroke Chest Chest palpation & inspection: normal inspection of the chest Resp Effort & Inspection: normal respiratory effort and able to speak in complete sentences Auscultation: clear to auscultation bilaterally Cardio Jugular venous distension: no JVD Palpation: normal PMI Rate: regular rate Rhythm: regular rhythm Heart sounds: S1 normal heart sound present and S2 normal heart sound present GI Inspection: Yes normal to inspection Palpation (GI): Soft to palpation and No hepatosplenomegaly present Auscultation: normal bowel sounds General: Yes no CVA tenderness Back/Spine/Pelvis Back: no CVA tenderness Skin General skin exam: no rashes or lesions noted Neuro General: oriented to person, oriented to place and oriented to time Extrem General: Yes normal to inspection and Yes full ROM Assessment and Plan Assessment & Plan (1) Preop exam for internal medicine: Code(s): Z01.818 - Encounter for other preprocedural examination Plan: low risk for cardiovascular complications; cleared for surgery (2) Pure hypercholesterolemia: Code(s): E78.00 - Pure hypercholesterolemia, unspecified Plan: stable; same rx (3) Benign essential hypertension: Code(s): I10 - Essential (primary) hypertension Plan: stable; same rx (4) Type 2 diabetes mellitus with hyperglycemia: Comment: NIDDM, >10 years Code(s): E11.65 - Type 2 diabetes mellitus with hyperglycemia Qualifiers: Diabetes mellitus senior care insulin use: without assistant terminal manager use Qualified Code(s): E11.65 - Type 2 diabetes mellitus with hyperglycemia Plan: stable ;same rx Coding Level of Care Code Est Pt Level 4 (44578) Diagnoses Preop exam for internal medicine Z01.818 Pure hypercholesterolemia E78.00 Benign essential hypertension I10 Type 2 diabetes mellitus with hyperglycemia E11.65 Diabetes mellitus assistant terminal manager insulin use: without senior care use
[2022-09-26 08:40] VITALS: BP 128/68; PULSE 82; O2SAT 97; BMI 28.6
== END 2022-09-26 09:19 | disposition home or self-care (01) ==
PROVIDERS: PCP Internal Medicine; Visit Provider Internal Medicine
DX: Z01.818 Encounter for other preprocedural examination (principal); E78.00 Pure hypercholesterolemia, unspecified; I10 Essential (primary) hypertension; E11.65 Type 2 diabetes mellitus with hyperglycemia
CPT/HCPCS: 99214

== ENCOUNTER 2022-10-14 09:14 | Outpatient (AMB) | payer MEDICARE, SELFPAY ==
--- NOTE | 2022-10-14 09:16 | MHC.OFFVIS ---
Intake Vital Signs 10/14/22 09:20 Height 5 ft 6 in Weight 178 lb 4 oz BMI 28.8 BP 162/71 H Blood Pressure Location Rt brachial Position Sitting Pulse 74 Pulse Source Pulse Oximeter Pulse Oximetry (%) 98 Oxygen Delivery Method Room Air Intake Visit Reasons: Quetenza Application Intake Note: Pain today 09/29 Telemetry Registered Nurse Required: No Accompanied by: Self / Same As Patient Allergies No Known Allergies [No Known Allergies*] Allergy (Verified 09/26/22 08:40) HPI HPI Comments History of Present Illness Details Patient presents for 3rd application of capsaicin 8% topical patch for diabetic neuropathy in bilateral feet. Patient reports that he is no longer interested in Capsaicin patch application due to its minimal efficacy and states his feet are no longer hurting and most of the pain is localized to bilateral lower legs without any specific dermatome. He denies any axial or radicular pain. Patient describes his leg pain as constant aching, scalding, searing, spasming, or nagging. Smoking will completely alleviate his leg pain per patient. He reports smoking 1-2 cigarettes per day and some days does not smoke. Denies any recent cough, cold, infection, fever, dizziness, chest pain, swelling, redness, skin lesions or rash or other significant changes in medical history since last office visit. PRIOR: Patient is a pleasant 72 years old male with a history of arthritis, diabetes and neuropathy presents today with bilateral leg burning pain with paresthesia sensations in his both feet for about one year. Patient has a history of diabetes for 10 years and most recent A1C was 6.9 on 01/2022. His last diabetic retinopathy exam was on 04/20/21 and foot exam 07/08/21. Patient describes his pain in his legs and feet as constant hot burning, aching, scalding and searing. Gabapentin and tramadol have been effective so far but reports he continues to experience significant burning pain at night which has been affecting his sleep as well as daily functions. Patient denies any back pain symptoms today. His lower legs presented with dry, scaly and light brown discoloration in anterior aspects of lower extremities. Patient quit smoking in 2018. Patient denies any fever, chills, weight loss, abdominal or groin pain, back pain, claudication, weakness, leg or feet pain with weightbearing, bowel or bladder incontinence or saddle anesthesia. [facility] Medical History Benign essential hypertension Chronic pain syndrome Dysphagia Foot pain, right Goiter HLD (hyperlipidemia) HTN (hypertension) Lyme disease Neuropathy Obesity (BMI 30-39.9) Pure hypercholesterolemia Tremor Tubular adenoma of colon Type 2 diabetes mellitus with hyperglycemia Vitamin D deficiency Surgical History History of cataract surgery Hx of colonoscopy Family History Father No problems noted. Mother No problems noted. Sister In good health Son In good health Social History Housing: House Alcohol intake: current Alcohol intake frequency: does not drink Patient Tobacco Use Status: Current everyday Tobacco user Tobacco use type: Cigarette Cigarettes Per Day: 2 e-Cigarette/Vaping Use: Never Used Second Hand Smoke Exposure: No service: No Current occupational status: retired Cognitive needs: No Hearing needs: No Vision needs: No Review of Systems Const All systems reviewed & are unremarkable except as noted in HPI and below Physical Exam Vital Signs: Last Vital Signs Pulse 74 10/14/22 09:20 BP 162/71 H 10/14/22 09:20 Pulse Ox 98 10/14/22 09:20 Oxygen Delivery Method Room Air 10/14/22 09:20 BMI result Body Mass Index 28.8 On exam today: Appears afebrile. Alert and oriented, mildly hard of hearing. Mood and affect appropriate. Anxious effect. Follows and participates in conversation appropriately. Respiratory effort is unlabored. No cough. Able to transition from sit to stand unassisted. Ambulates with bilaterally normal heel strike and toe off. Able to stand and walk on toes and heels. Back/Spine/Pelvis Cervical Spine: cervical ROM normal and No Cervical spine tenderness Thoracic/Lumbar Spine: thoracic and lumbar spine normal to inspection, thoraco-lumbar ROM normal, Lasegue's sign negative, straight leg raise negative bilaterally, No thoracic spinal tenderness and No lumbar spinal tenderness Skin General skin exam: no rashes or lesions noted, dry skin and turgor decreased Trauma: no lacerations or abrasions Wounds: no wounds Neuro General: moves all extremities, Normal light touch and pain sensation (decreased sensation in plantar surfaces of both feet to light touch), no focal motor deficits and CN's II-XI intact bilaterally Gait exam (Neuro): Normal gait present Motor exam (neuro): 5/5 motor strength present throughout and Motor abnormalities not present Extrem General: Yes capillary refill normal, Yes no clubbing, cyanosis or edema and Yes no calf tenderness Results Reviewed Results Reviewed: Assessment & Plan Assessment & Plan (1) Chronic pain syndrome: Code(s): G89.4 - Chronic pain syndrome (2) Painful diabetic neuropathy: Code(s): E11.40 - Type 2 diabetes mellitus with diabetic neuropathy, unspecified (3) Lower extremity pain, bilateral: Code(s): M79.604 - Pain in right leg; M79.605 - Pain in left leg Plan Patient decided not to undergo Qutenza patch application today as he finds this with midly effective. He reports no significant bilateral foot pain but reports most of his pain is in lower legs without any specific dermatome and negative SLR testing. Patient reports he has restarted smoking for stress related event and is aware of longterm complications with tobacco use and prior history of smoking. He continues to take Tramadol and Gabapentin prescribed by his PCP provider. Most recent A1C is elevated at 8.2. We will proceed with Vascular Referral to rule out venous insufficiency and PVD given his risks factors. All questions and concerns have been answered and patient agreed with the plan. Follow up as needed. Orders: Referrals Vascular Surgery Referral E11.40 - Type 2 diabetes mellitus with diabetic neuropathy, unspecified, M79.604 - Pain in right leg, M79.605 - Pain in left leg Quality Reporting (2019) Adult ([facility] 138/04/13/68) Smoking risk assessment performed?: Yes Patient Tobacco Use Status: Former Tobacco user Coding Level of Care Code Est Pt Level 4 (68315) Diagnoses Chronic pain syndrome G89.4 Painful diabetic neuropathy E11.40 Lower extremity pain, bilateral M79.604; M79.605
[2022-10-14 09:20] VITALS: BP 162/71; PULSE 74; O2SAT 98; BMI 28.8
== END 2022-10-14 09:38 | disposition home or self-care (01) ==
PROVIDERS: PCP Internal Medicine; Visit Provider Nurse Practitioner Family
DX: E11.40 Type 2 diabetes mellitus with diabetic neuropathy, unspecified (principal); G89.4 Chronic pain syndrome; M79.604 Pain in right leg; M79.605 Pain in left leg
CPT/HCPCS: 99214

== ENCOUNTER → 2022-10-14 09:14 | Outpatient (BNVA) | payer MEDICARE, SELFPAY | PROVIDERS: PCP Internal Medicine; Visit Provider Nurse Practitioner Family | DX: E11.40 Type 2 diabetes mellitus with diabetic neuropathy, unspecified (principal); E11.65 Type 2 diabetes mellitus with hyperglycemia; G89.4 Chronic pain syndrome; M79.604 Pain in right leg; M79.605 Pain in left leg | CPT/HCPCS: 99212 ==

== ENCOUNTER 2022-11-17 13:47 | Outpatient (AMB) | payer MEDICARE, SELFPAY ==
--- NOTE | 2022-11-17 13:50 | MHC.PC.OV ---
Vital Signs 11/17/22 13:51 Height 5 ft 6 in Weight 183 lb 4 oz BMI 29.6 BP 140/80 H Blood Pressure Location Lt brachial Position Sitting Pulse 75 Pulse Source Pulse Oximeter Pulse Oximetry (%) 97 Oxygen Delivery Method Room Air Intake Visit Reasons: 3 MONTH F/U Intake Note: Patient is here to follow up on symptoms DM. 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: Not Required per policy Accompanied by: Self / Same As Patient Allergies No Known Allergies [No Known Allergies*] Allergy (Verified 11/18/22 15:45) Medication List - Last Reconciled 11/18/22 by Cosmo Napoles MD atorvastatin 40 mg PO DAILY 30 days blood sugar diagnostic As directed blood-glucose meter As directed dulaglutide (Trulicity) 3 mg (0.5 mL) subcut QWEEK 30 days gabapentin 300 mg PO BID glipizide 10 mg PO DAILY lisinopril 5 mg PO DAILY metformin 1,000 mg PO BID tramadol 50 mg PO DAILY Tobacco use date assessed: 11/17/22 HPI 3 MONTH F/U HPI Details 72-year-old male presents to the office to discuss his chronic medical conditions. Patient would like to get a PSA checked. He is reporting that he has been choking on food for the past month. Symptoms of choking and coughing with the 1st bite. No loss of weight. Able to swallow liquids and solids with no difficulty. Has not been on the Trulicity. Compliant with other medications. Still very reluctant to take insulin. [facility], [facility] Medical History Dysphagia Foot pain, right Tremor Neuropathy Lyme disease Goiter Vitamin D deficiency HLD (hyperlipidemia) HTN (hypertension) Tubular adenoma of colon Obesity (BMI 30-39.9) Chronic pain syndrome Pure hypercholesterolemia Benign essential hypertension Type 2 diabetes mellitus with hyperglycemia Surgical History Hx of colonoscopy History of cataract surgery Family History Father No problems noted. Mother No problems noted. Sister In good health Son In good health Social History Housing: House Alcohol intake: current Alcohol intake frequency: does not drink Patient Tobacco Use Status: Current everyday Tobacco user Tobacco use type: Cigarette Cigarettes Per Day: 2 e-Cigarette/Vaping Use: Never Used Second Hand Smoke Exposure: No service: No Current occupational status: retired Cognitive needs: No Hearing needs: No Vision needs: No Questionnaire Thrive Questionnaire Date Thrive assessed: 08/18/22 GARRICK-7 AMB Questionnaire GARRICK-7 Date GARRICK - 7 assessed: 08/18/22 Source: Developed by Drs. Heriberto Gonzalez, Keerthi Reeves, Rolando Wilhelm and colleagues, with an educational murtaza from [employer]. Physical exam (Primary Care) Vital Signs: Last Vital Signs Pulse 75 11/17/22 13:51 BP 140/80 H 11/17/22 13:51 Pulse Ox 97 11/17/22 13:51 Oxygen Delivery Method Room Air 11/17/22 13:51 BMI result Body Mass Index 29.6 Tobacco/Smoking Status: Tobacco use Status Tobacco use date assessed 11/17/22 11/17/22 13:54 Patient Tobacco Use Status Current everyday Tobacco 11/17/22 13:54 Tobacco use type Cigarette 11/17/22 13:54 e-Cigarette/Vaping Use Never Used 11/17/22 13:54 Thrive Assessment: Date of Thrive Assessment Date Thrive assessed 08/18/22 11/17/22 13:54 Const General: cooperative and healthy appearing Nutritional Appearance: well nourished Orientation/consciousness: patient oriented x3 Limitations: no limitations HENMT Head: Yes normal to inspection Eyes General: appearance normal, both eyes and all related structures Neck Neck: Yes normal visual inspection Chest Chest palpation & inspection: normal palpation of entire chest wall Resp Effort & Inspection: normal respiratory effort Neuro General: patient oriented x3 Results AMB Hemoglobin A1c AMB Hemoglobin A1c 7.3 % Last Edit by ELIAN Gillette on 11/17/22 14:06 Results Reviewed Results Reviewed: Laboratory Last Values Hgb A1c (Clinic) 7.3 % (4.0-6.0) H 11/17/22 13:49 Assessment and Plan Assessment & Plan (1) Benign essential hypertension: Code(s): I10 - Essential (primary) hypertension Plan: Blood pressure is in range. Continue current medications. (2) Type 2 diabetes mellitus with hyperglycemia: Comment: NIDDM, >10 years Code(s): E11.65 - Type 2 diabetes mellitus with hyperglycemia Qualifiers: Diabetes mellitus senior care insulin use: without senior care use Qualified Code(s): E11.65 - Type 2 diabetes mellitus with hyperglycemia Plan: Continue current medications. A1c has reduced from 8.2 to 7.3. (3) Dysphagia: Code(s): R13.10 - Dysphagia, unspecified Plan: A barium swallow with small-bowel follow-through has been ordered. Orders: Orders AMB Hemoglobin A1c 11/17/22.65 - Type 2 diabetes mellitus with hyperglycemia Prostate Specific Antigen Scr 11/17/22.65 - Type 2 diabetes mellitus with hyperglycemia, I10 - Essential (primary) hypertension Complete Blood Count no Diff 11/17/22.65 - Type 2 diabetes mellitus with hyperglycemia, I10 - Essential (primary) hypertension Lipid Panel 11/17/22.65 - Type 2 diabetes mellitus with hyperglycemia, I10 - Essential (primary) hypertension Liver Panel 11/17/22.65 - Type 2 diabetes mellitus with hyperglycemia, I10 - Essential (primary) hypertension Basic Metabolic Panel 11/17/22.65 - Type 2 diabetes mellitus with hyperglycemia, I10 - Essential (primary) hypertension Microalbumin, Random (w Creat) 11/17/22.65 - Type 2 diabetes mellitus with hyperglycemia, I10 - Essential (primary) hypertension FL barium swallow w SBFT 11/17/22 R13.10 - Dysphagia, unspecified Coding Level of Care Code Est Pt Level 4 (57560) Diagnoses Benign essential hypertension I10 Type 2 diabetes mellitus with hyperglycemia, without long-term current use of insulin Diabetes mellitus terminal operations manager insulin use: without senior care use Dysphagia R13.10
[2022-11-17 13:51] VITALS: BP 140/80; PULSE 75; O2SAT 97; BMI 29.6
== END 2022-11-17 14:13 | disposition home or self-care (01) ==
PROVIDERS: PCP Internal Medicine; Visit Provider Internal Medicine
DX: E11.65 Type 2 diabetes mellitus with hyperglycemia (principal)
CPT/HCPCS: 83036; 99214

== ENCOUNTER 2022-11-19 07:24 | Outpatient (REF) | payer MEDICARE, SELFPAY ==
[2022-11-19 08:14] LABS: Hematocrit 45.6 % (42.0-52.0); Hemoglobin 15.6 g/dl (14.0-18.0); Mean Corpuscular HGB Conc 34.2 g/dl (31.0-36.0); Mean Corpuscular Hemoglobin 31.9 pg (27.0-33.0); Mean Corpuscular Volume 93.3 fL (80.0-98.0); Mean Platelet Volume 9.7 fL (9.4-12.4); Platelet Count 203 X10*3/uL (160-400); Red Blood Count 4.89 X10*6/uL (4.60-5.80); Red Cell Distribution Width 12.2 % (11.0-16.0); White Blood Count 4.9 X10*3/uL (4.8-10.8)
[2022-11-19 08:22] LABS: Estimated Average Glucose 163 mg/dL; Hemoglobin A1c % 7.3 % (<6.0)
[2022-11-19 09:05] LABS: Alanine Aminotransferase 20 U/L (0-40); Alkaline Phosphatase 67 U/L (39-117); Anion Gap 15 (12-20); Aspartate Amino Transferase 11 U/L (5-37); Bilirubin Direct 0.2 mg/dL (0.0-0.5); Bilirubin Total 0.5 mg/dL (0.0-1.0); Blood Urea Nitrogen 21 mg/dL (9-16); Calcium 9.5 mg/dL (8.4-10.2); Carbon Dioxide 22 mmol/L (22-29); Chloride 108 mmol/L (96-108); Cholesterol 139 mg/dL (<200); Estimated Glomerular Filt Rate > 60; Glucose Random 209 mg/dL (60-115); HDL Cholesterol 46 mg/dL (>40); LDL Cholesterol Calculated 67 mg/dL (<100); Potassium 4.1 mmol/L (3.3-5.1); Sodium 141 mmol/L (135-145); Total Protein 6.9 g/dL (6.5-8.0); Triglycerides 133 mg/dL (<150)
[2022-11-19 09:21] LABS: Prostate Specific Antigen Scr 2.14 ng/mL (<0.05-4.0)
[2022-11-19 11:26] LABS: Appearance Urine Clear; Color Urine Yellow; Glucose Urine UA 500 mg/dL (Negative); Leukocyte Esterase Urine Negative (Negative); Nitrite Urine Negative (Negative); Specific Gravity - Urine 1.025 (1.005-1.025); UMIC TRIGGER UACC YES; Urine Blood Small (1+) (Negative); Urine Ketones Negative (Negative); Urine Protein Negative (Neg-Trace)
[2022-11-19 11:32] LABS: Bacteria Urine None Seen (None Seen); Hyaline Casts Urine 0-2 /LPF (0-2); Squamous Epithelial Cell Urine 0-2 /HPF (0-2); WBC Urine 0-5 /HPF (0-5)
[2022-11-19 11:50] LABS: Creatinine Urine 117.58 mg/dL; Microalbum/Creatinine Ratio Ur 16.1 ug/mg cr (<30)
== END 2022-11-19 07:25 | disposition home or self-care (01) ==
LOC: HO.LAB 07:24
PROVIDERS: PCP Internal Medicine; Visit Provider Internal Medicine
DX: Z12.5 Encounter for screening for malignant neoplasm of prostate (principal); I10 Essential (primary) hypertension; E11.65 Type 2 diabetes mellitus with hyperglycemia
CPT/HCPCS: 36415; 80048; 80061; 80076; 81001; 82043; 82570; 83036; 84153; 85027

== ENCOUNTER 2022-12-01 13:02 | Outpatient (AMB) | payer MEDICARE, SELFPAY ==
--- NOTE | 2022-12-01 13:08 | A.OFFVIS_ITS ---
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 He had been seen by pain management. He has been complaining of joint pain and he has a history of arthritis. He has a history of diabetes for over 10 years. He now reports that he smokes 2-3 cigarettes daily but I do suspect it is a little bit more than that. He also reports that he has difficulty ambulating more than a block or 2 in reports that he has burning pain along with some calf discomfort as well. He now presents to us for vascular evaluation. [facility] Medical History Dysphagia Foot pain, right Tremor Neuropathy Lyme disease Goiter Vitamin D deficiency HLD (hyperlipidemia) HTN (hypertension) Tubular adenoma of colon Obesity (BMI 30-39.9) Chronic pain syndrome Pure hypercholesterolemia Benign essential hypertension Type 2 diabetes mellitus with hyperglycemia Surgical History Hx of colonoscopy History of cataract surgery Family History Father No problems noted. Mother No problems noted. Sister In good health Son In good health Social History Housing: House Alcohol intake: current Alcohol intake frequency: does not drink Patient Tobacco Use Status: Current everyday Tobacco user Tobacco use type: Cigarette Cigarettes Per Day: 2 e-Cigarette/Vaping Use: Never Used Second Hand Smoke Exposure: No service: No Current occupational status: retired Cognitive needs: No Hearing needs: No Vision needs: No Review of Systems Const All systems reviewed & are unremarkable except as noted in HPI and below Reports no additional complaints ENT Reports Normal hearing present Card Denies chest pain, Denies chest pain at rest, Denies chest pain with activity and Denies pedal edema Resp Denies cough GI Denies abdominal pain Musc Denies abnormal gait, Denies muscle cramps and Denies radiating pain into limb Skin/Breast Denies skin ulcer and Denies wounds Neuro Reports Normal hearing present and Denies abnormal gait Psych Reports no additional complaints Physical Exam Vital Signs: BMI result Body Mass Index 29.5 Const General: cooperative, healthy appearing and comfortable Orientation/consciousness: oriented to person, oriented to place and oriented to time HEENT Head: Yes normal to inspection Neck Neck: Yes normal visual inspection Carotids: no bruits Chest Chest palpation & inspection: normal inspection of the chest Resp Effort & Inspection: normal respiratory effort and able to speak in complete sentences Auscultation: clear to auscultation bilaterally, no crackles, no rales, no rhonchi and no wheezes Cardio Other: Bilateral DP signals Rate: regular rate Rhythm: regular rhythm Heart sounds: S1 normal heart sound present and S2 normal heart sound present Bruits: no carotid bruits Peripheral pulses: Peripheral pulses 2+ throughout GI Inspection: Yes normal to inspection Skin Wounds: no wounds Hair: normal Neuro General: oriented to person, oriented to place and oriented to time Cranial nerves: Yes CN's II-XII intact bilaterally and Yes Normal hearing present Cognition (Neuro): normal cognition Motor exam (neuro): 5/5 motor strength present throughout Extrem Other: venous exam: No significant superficial varicosities or spider telangiectasias, minimal edema General: No clubbing, No cyanosis and No edema Psych Appearance: grossly normal Mental Status: mental status grossly normal Speech and movement: Normal speech and movement present Assessment & Plan Assessment & Plan (1) PAD (peripheral artery disease): Code(s): I73.9 - Peripheral vascular disease, unspecified Plan: In short patient has lower extremity pain. There appears to be an element of chronic pain syndrome and neuropathy of this. There may be an element of peripheral vascular disease as well. I have taken the liberty ordering noninvasive arterial testing to rule that out. He will follow up with us after testing. Thank you for allowing us to assist in his care. If there are any questions or concerns please do not hesitate to contact us. Quality Reporting (2019) Adult ([facility] 138/04/13/68) Smoking risk assessment performed?: Yes Patient Tobacco Use Status: Current everyday Tobacco user Coding Level of Care Code New Pt Level 4 (14508) Diagnoses PAD (peripheral artery disease) I73.9
[2022-12-01 13:10] VITALS: BMI 29.5
== END 2022-12-01 13:32 | disposition home or self-care (01) ==
PROVIDERS: PCP Internal Medicine; Visit Provider Surgery Vascular Surgery
DX: I73.9 Peripheral vascular disease, unspecified (principal)
CPT/HCPCS: 99203

== ENCOUNTER → 2022-12-01 13:02 | Outpatient (BNVA) | payer MEDICARE, SELFPAY | PROVIDERS: PCP Internal Medicine; Visit Provider Surgery Vascular Surgery ==

== ENCOUNTER 2023-01-02 14:11 | Outpatient (REF) | payer MEDICARE, SELFPAY ==
--- NOTE | ~2023-01-02 | US_ITS ---
EXAMINATION: US NONINVASIVE ASSESSMENT OF THE ARTERIES OF BOTH LOWER EXTREMITIES INCLUDING PVR EXAM AND BILATERAL LOWER EXTREMITY DUPLEX. CLINICAL INFORMATION: Peripheral vascular disease COMPARISON: None TECHNIQUE: Ankle pulse volume recordings, ankle pressure measurements and ankle brachial indices were obtained of the lower extremity arterial system bilaterally in addition to duplex Doppler techniques with wave form analysis and measurement of velocities in the common femoral, profunda femoral, superficial femoral, popliteal, tibial and peroneal arteries. The study was performed only at rest. FINDINGS: RIGHT LE. THE RIGHT ANKLE-BRACHIAL INDEX IS: 1.24 noncompressibility/calcification. >0.97-1.25 = normal - no significant arterial disease 0.75-0.96 = mild peripheral arterial disease 0.5-0.74 = moderate peripheral arterial disease <0.50 = severe peripheral arterial disease <0.30 = critical arterial disease 2. SEGMENTAL PRESSURES (mmHg): Ankle: PT 183, DP 136 3. PVR WAVEFORMS: Ankle: Dampened amplitude 4. DIRECT DUPLEX: Common femoral artery: 164 cm/s, Multiphasic Profunda femoris artery: 172 cm/s, Multiphasic Superficial femoral artery (proximal): 93 cm/s, Multiphasic Superficial femoral artery (mid): 101 cm/s, Multiphasic Superficial femoral artery (distal): 92 cm/s, Multiphasic Proximal Popliteal artery: 93 cm/s, Multiphasic Mid posterior tibial artery: 102 cm/s, Biphasic LEFT LE. THE LEFT ANKLE-BRACHIAL INDEX IS: 1.21 (higher of the DP/PT) >0.97-1.25 = normal - no significant arterial disease 0.75-0.96 = mild peripheral arterial disease 0.5-0.74 = moderate peripheral arterial disease <0.50 = severe peripheral arterial disease <0.30 = critical arterial disease 2. SEGMENTAL PRESSURES: Ankle: PT 178, DP 177 3. PVR WAVEFORMS: Ankle: Dampened amplitude 4. DIRECT DUPLEX: Common femoral artery: 134 cm/s, Multiphasic Profunda femoris artery: 223 cm/s, Biphasic Superficial femoral artery (proximal): 99 cm/s, Multiphasic Superficial femoral artery (mid): 148 cm/s, Multiphasic Superficial femoral artery (distal): 156 cm/s, Multiphasic Proximal Popliteal artery: 93 cm/s, Multiphasic Mid posterior tibial artery: 102 cm/s, Multiphasic US/US arterial duplex LE BI IMPRESSION: Normal bilateral ABIs. However, tibial vessels joyner appear echogenic/calcified and is likely not an accurate indicator of this patient's mild bilateral lower extremity peripheral vascular disease based off velocity criteria.
--- NOTE | ~2023-01-02 | US_ITS ---
EXAMINATION: US NONINVASIVE ASSESSMENT OF THE ARTERIES OF BOTH LOWER EXTREMITIES INCLUDING PVR EXAM AND BILATERAL LOWER EXTREMITY DUPLEX. CLINICAL INFORMATION: Peripheral vascular disease COMPARISON: None TECHNIQUE: Ankle pulse volume recordings, ankle pressure measurements and ankle brachial indices were obtained of the lower extremity arterial system bilaterally in addition to duplex Doppler techniques with wave form analysis and measurement of velocities in the common femoral, profunda femoral, superficial femoral, popliteal, tibial and peroneal arteries. The study was performed only at rest. FINDINGS: RIGHT LE. THE RIGHT ANKLE-BRACHIAL INDEX IS: 1.24 noncompressibility/calcification. >0.97-1.25 = normal - no significant arterial disease 0.75-0.96 = mild peripheral arterial disease 0.5-0.74 = moderate peripheral arterial disease <0.50 = severe peripheral arterial disease <0.30 = critical arterial disease 2. SEGMENTAL PRESSURES (mmHg): Ankle: PT 183, DP 136 3. PVR WAVEFORMS: Ankle: Dampened amplitude 4. DIRECT DUPLEX: Common femoral artery: 164 cm/s, Multiphasic Profunda femoris artery: 172 cm/s, Multiphasic Superficial femoral artery (proximal): 93 cm/s, Multiphasic Superficial femoral artery (mid): 101 cm/s, Multiphasic Superficial femoral artery (distal): 92 cm/s, Multiphasic Proximal Popliteal artery: 93 cm/s, Multiphasic Mid posterior tibial artery: 102 cm/s, Biphasic LEFT LE. THE LEFT ANKLE-BRACHIAL INDEX IS: 1.21 (higher of the DP/PT) >0.97-1.25 = normal - no significant arterial disease 0.75-0.96 = mild peripheral arterial disease 0.5-0.74 = moderate peripheral arterial disease <0.50 = severe peripheral arterial disease <0.30 = critical arterial disease 2. SEGMENTAL PRESSURES: Ankle: PT 178, DP 177 3. PVR WAVEFORMS: Ankle: Dampened amplitude 4. DIRECT DUPLEX: Common femoral artery: 134 cm/s, Multiphasic Profunda femoris artery: 223 cm/s, Biphasic Superficial femoral artery (proximal): 99 cm/s, Multiphasic Superficial femoral artery (mid): 148 cm/s, Multiphasic Superficial femoral artery (distal): 156 cm/s, Multiphasic Proximal Popliteal artery: 93 cm/s, Multiphasic Mid posterior tibial artery: 102 cm/s, Multiphasic US/US ANA complete IMPRESSION: Normal bilateral ABIs. However, tibial vessels joyner appear echogenic/calcified and is likely not an accurate indicator of this patient's mild bilateral lower extremity peripheral vascular disease based off velocity criteria.
== END 2023-01-02 14:12 | disposition home or self-care (01) ==
LOC: HO.US 14:11
PROVIDERS: PCP Internal Medicine; Visit Provider Surgery Vascular Surgery
DX: I73.9 Peripheral vascular disease, unspecified (principal)
CPT/HCPCS: 93923; 93925

== ENCOUNTER 2023-01-24 09:02 | Outpatient (AMB) | payer MEDICARE, SELFPAY ==
--- NOTE | 2023-01-24 09:05 | MHC.OFFVIS ---
Intake Intake Visit Reasons: FU US Intake Note: pt her for a fallow up Arterial US on 01/02/23.he has a hx of PVD. pt states things are about the same he still feels the burning sensation in both LE Allergies No Known Allergies [No Known Allergies*] Allergy (Verified 01/24/23 09:07) HPI FU US HPI Details Very pleasant 72-year-old gentleman presents for follow-up regarding his lower extremity pain and discomfort. He has undergone noninvasive arterial testing. He reports that he has a persistent burning sensation that is more present and bilateral pretibial surfaces. Is more of a constant pain not associated with ambulation. He now presents for routine follow-up [facility] Medical History Dysphagia Foot pain, right Tremor Neuropathy Lyme disease Goiter Vitamin D deficiency HLD (hyperlipidemia) HTN (hypertension) Tubular adenoma of colon Obesity (BMI 30-39.9) Chronic pain syndrome Pure hypercholesterolemia Benign essential hypertension Type 2 diabetes mellitus with hyperglycemia Surgical History Hx of colonoscopy History of cataract surgery Family History Father No problems noted. Mother No problems noted. Sister In good health Son In good health Social History Housing: House Alcohol intake: current Alcohol intake frequency: does not drink Patient Tobacco Use Status: Current everyday Tobacco user Tobacco use type: Cigarette Cigarettes Per Day: 2 e-Cigarette/Vaping Use: Never Used Second Hand Smoke Exposure: No service: No Current occupational status: retired Cognitive needs: No Hearing needs: No Vision needs: No Review of Systems Const All systems reviewed & are unremarkable except as noted in HPI and below Reports no additional complaints ENT Reports Normal hearing present Card Denies chest pain, Denies chest pain at rest, Denies chest pain with activity and Denies pedal edema Resp Denies cough GI Denies abdominal pain Musc Denies abnormal gait, Denies muscle cramps and Denies radiating pain into limb Skin/Breast Denies skin ulcer and Denies wounds Neuro Reports Normal hearing present and Denies abnormal gait Psych Reports no additional complaints Physical Exam Const General: cooperative, healthy appearing and comfortable Orientation/consciousness: oriented to person, oriented to place and oriented to time HEENT Head: Yes normal to inspection Neck Neck: Yes normal visual inspection Carotids: no bruits Chest Chest palpation & inspection: normal inspection of the chest Resp Effort & Inspection: normal respiratory effort and able to speak in complete sentences Auscultation: clear to auscultation bilaterally, no crackles, no rales, no rhonchi and no wheezes Cardio Other: Bilateral DP signals Rate: regular rate Rhythm: regular rhythm Heart sounds: S1 normal heart sound present and S2 normal heart sound present Bruits: no carotid bruits Peripheral pulses: Peripheral pulses 2+ throughout GI Inspection: Yes normal to inspection Skin Wounds: no wounds Hair: normal Neuro General: oriented to person, oriented to place and oriented to time Cranial nerves: Yes CN's II-XII intact bilaterally and Yes Normal hearing present Cognition (Neuro): normal cognition Motor exam (neuro): 5/5 motor strength present throughout Extrem Other: venous exam: No significant superficial varicosities or spider telangiectasias, minimal edema General: No clubbing, No cyanosis and No edema Psych Appearance: grossly normal Mental Status: mental status grossly normal Speech and movement: Normal speech and movement present Results Reviewed Results Reviewed: Arterial testing dated 01/02/2023 demonstrates ANA on the right of 1.24 and on the left of 1.21 with multi phasic flow all the way down. Assessment & Plan Assessment & Plan (1) PAD (peripheral artery disease): Code(s): I73.9 - Peripheral vascular disease, unspecified Plan: In short patient has no evidence of peripheral vascular disease. Arterial testing appears to be within normal limits. I do believe there is an element of neuropathy as he is a longstanding diabetic and his clinical symptomatology matches that. We did discuss these findings with the patient. Should pain and discomfort persist may benefit from a neurologic evaluation. He will follow up with us on an as-needed basis. Thank you for allowing us to assist in his care. If there are questions or concerns please do not hesitate to contact us. Quality Reporting (2019) Adult ([facility] 13804/13/68) Smoking risk assessment performed?: Yes Patient Tobacco Use Status: Current everyday Tobacco user Coding Level of Care Code Est Pt Level 4 (29613) Diagnoses PAD (peripheral artery disease) I73.9
== END 2023-01-24 09:26 | disposition home or self-care (01) ==
PROVIDERS: PCP Internal Medicine; Visit Provider Surgery Vascular Surgery
DX: I73.9 Peripheral vascular disease, unspecified (principal)
CPT/HCPCS: 99213

== ENCOUNTER → 2023-01-24 09:02 | Outpatient (BNVA) | payer MEDICARE, SELFPAY | PROVIDERS: PCP Internal Medicine; Visit Provider Surgery Vascular Surgery | DX: I73.9 Peripheral vascular disease, unspecified (principal) | CPT/HCPCS: 99212 ==

== ENCOUNTER 2023-03-29 14:31 | Outpatient (AMB) | payer MEDICARE, SELFPAY ==
--- NOTE | 2023-03-29 14:33 | MHC.PC.OV ---
Vital Signs 03/29/23 14:36 Height 5 ft 6 in Weight 178 lb 8 oz BMI 28.8 BP 140/60 H Blood Pressure Location Lt brachial Position Sitting Pulse 96 Pulse Source Pulse Oximeter Pulse Oximetry (%) 96 Oxygen Delivery Method Room Air Intake Visit Reasons: Had fall on Monday Intake Note: Patient is here today for a syncope and fall on 03/25/23, did not hit head, no body aches. 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 Manager Utilization Review: Not Required per policy Accompanied by: Self / Same As Patient Allergies No Known Allergies [No Known Allergies*] Allergy (Verified 03/31/23 10:35) Medication List - Last Reconciled 03/31/23 by Cosmo Napoles MD atorvastatin 40 mg PO DAILY 30 days blood sugar diagnostic As directed blood-glucose meter As directed dulaglutide (Trulicity) 3 mg (0.5 mL) subcut QWEEK 30 days empagliflozin (Jardiance) 25 mg PO DAILY gabapentin 300 mg PO BID glipizide 10 mg PO DAILY lisinopril 5 mg PO DAILY metformin 1,000 mg PO BID tramadol 50 mg PO DAILY Tobacco use date assessed: 03/29/23 Fall risk assessment: 1 Fall in past year Last assessed Fall Risk: 03/29/23 Dental Screening Dental Screen Date: 03/29/23 Did you have a dental visit in the last 12 months?: Yes Did you have a dental problem in the last 6 months where you did not have access to dental care?: No Was dental information given to patient?: Patient has dentist HPI Had fall on Monday HPI Details 73-year-old male presents to the office for a sick visit. Patient is reporting that on Monday last, he had a syncopal episode. He was standing at the kitchen counter drinking a glass of milk, when he suddenly felt dizzy and fell back on the floor. He immediately woke up. He did not urinate in his pants or bite his tongue. His witnessed the event. There was no flaying of the extremities. Patient recovered completely from that episode. He had no injuries. Subsequently he has been feeling well. Has started driving and able to do all activities of daily living. Has not been checking his blood sugars. [facility] Medical History Dysphagia Foot pain, right Tremor Neuropathy Lyme disease Goiter Vitamin D deficiency HLD (hyperlipidemia) HTN (hypertension) Tubular adenoma of colon Obesity (BMI 30-39.9) Chronic pain syndrome Pure hypercholesterolemia Benign essential hypertension Type 2 diabetes mellitus with hyperglycemia Surgical History Hx of colonoscopy History of cataract surgery Family History Father No problems noted. Mother No problems noted. Sister In good health Son In good health Social History Housing: House Alcohol intake: current Alcohol intake frequency: does not drink Patient Tobacco Use Status: Current everyday Tobacco user Tobacco use type: Cigarette Cigarettes Per Day: 2 e-Cigarette/Vaping Use: Never Used Second Hand Smoke Exposure: No service: No Current occupational status: retired Cognitive needs: No Hearing needs: No Vision needs: No Questionnaire PHQ-9 Over the last 2 weeks, how often have you been bothered by any of the following problems? 1. Little interest or pleasure in doing things: not at all 2. Feeling down, depressed, or hopeless: not at all 3. Trouble falling or staying asleep, or sleeping too much: not at all 4. Feeling tired or having little energy: not at all 5. Poor appetite or overeating: not at all 6. Feeling bad about yourself - or that you are a failure or have let yourself or your family down: not at all 7. Trouble concentrating on things, such as reading the newspaper or watching television: not at all 8. Moving or speaking so slowly that other people could have noticed. Or the opposite - being so fidgety or restless that you have been moving around a lot more than usual: not at all 9. Thoughts that you would be better off or of hurting yourself in some way: not at all Total score: 0 Depression Screening Interpretation: Negative Depression Screening Done: Yes Source: Developed by Drs. Heriberto Gonzalez, Keerthi Reeves, Rolando Wilhelm and colleagues, with an educational murtaza from [employer]. Thrive Questionnaire Date Thrive assessed: 03/29/23 I am a: Patient What is your living situation today?: I have a steady place to live Within the past 12 months, did the food you bought not last and you didn't have the money to get more?: Never true Within the past 12 months, did you worry whether your food would run out before you got money to buy more?: Never true Do you have trouble paying for medicines?: No Do you have trouble getting transportation to medical appointments?: No Do you have trouble paying your heating and electricity bill?: No Do you have trouble taking care of your child, family member or friend?: No Do you have trouble with day-to-day activities such as bathing, preparing meals, shopping, managing finances, etc.?: No Are you currently unemployed and looking for a job?: No Are you interested in more education?: No Currently or been in a relationship where the following occur: no concerns reported THRIVE Score: 0 AUDIT C Alcohol Use Questionnaire (AUDIT-C) 1. How often do you have a drink containing alcohol?: Never Total Score: 0 GARRICK-7 AMB Questionnaire GARRICK-7 Date GARRICK - 7 assessed: 03/29/23 Feeling nervous, anxious, or on edge: 0 = Not at all Not being able to stop or control worryin = Not at all Worrying too much about different things: 0 = Not at all Trouble relaxin = Not at all Being so restless that it is hard to sit still: 0 = Not at all Becoming easily annoyed or irritable: 0 = Not at all Feeling afraid as if something awful might happen: 0 = Not at all Total GARRICK-7 score (0-4 normal; 5-9 mild; 10-14 moderate; 15-21 severe): 0 Source: Developed by Drs. Heriberto Gonzalez, Keerthi Reeves, Rolando Wilhelm and colleagues, with an educational murtaza from [employer]. Physical exam (Primary Care) Vital Signs: Last Vital Signs Pulse 96 03/29/23 14:36 BP 140/60 H 03/29/23 14:36 Pulse Ox 96 03/29/23 14:36 Oxygen Delivery Method Room Air 03/29/23 14:36 BMI result Body Mass Index 28.8 Tobacco/Smoking Status: Tobacco use Status Tobacco use date assessed 03/29/23 03/29/23 14:43 Patient Tobacco Use Status Current everyday Tobacco 03/29/23 14:43 Tobacco use type Cigarette 03/29/23 14:43 e-Cigarette/Vaping Use Never Used 03/29/23 14:43 PHQ-9: PHQ-9 Score PHQ-9: Total score 0 03/29/23 15:40 Depression Screening Interpretation: Negative Thrive Assessment: Date of Thrive Assessment Date Thrive assessed 03/29/23 03/29/23 14:43 Currently or been in a relationship where the following occur: no concerns reported Office Procedures EKG Details: Normal sinus rhythm. 29616-[id number], Complete Results AMB Random Glucose (hemocue) AMB Random Glucose (hemocue) 139 mg/dL Last Edit by ELIAN Gonzalez on 03/29/23 15:41 AMB Hemoglobin A1c AMB Hemoglobin A1c 7.3 % Last Edit by ELIAN Gonzalez on 03/29/23 15:42 Results Reviewed Results Reviewed: Laboratory Last Values Random Glu (Clinic) 139 mg/dL 03/29/23 15:22 Hgb A1c (Clinic) 7.3 % (4.0-6.0) H 03/29/23 15:22 Assessment and Plan Assessment & Plan (1) Syncope: Code(s): R55 - Syncope and collapse Plan Most likely vasovagal in etiology. EKG reviewed with patient. Random blood sugar in the office was in range. Patient was reassured. Advised to keep his regular follow-up appointment. Orders: Orders AMB EKG-In Office Today R07.9 - Chest pain, unspecified AMB Hemoglobin A1c 03/29/23 E11.65 - Type 2 diabetes mellitus with hyperglycemia AMB Random Glucose (hemocue) 03/29/23 Z13.9 - Encounter for screening, unspecified Coding Level of Care Code Est Pt Level 4 (34866) Diagnoses Syncope R55 CPT Codes EKG - CPT: 93611-[id number], Complete ([id number])
[2023-03-29 14:36] VITALS: BP 140/60; PULSE 96; O2SAT 96; BMI 28.8
== END 2023-03-29 15:49 | disposition home or self-care (01) ==
PROVIDERS: PCP Internal Medicine; Visit Provider Internal Medicine
DX: R55 Syncope and collapse (principal)
CPT/HCPCS: 82948; 83036; 93000; 99214

== ENCOUNTER 2023-05-11 10:17 | Outpatient (AMB) | payer MEDICARE, SELFPAY ==
--- NOTE | 2023-05-11 10:46 | MHC.PC.OV ---
Vital Signs 05/11/23 10:48 Height 5 ft 6 in Weight 176 lb 4 oz BMI 28.4 BP 124/62 Blood Pressure Location Lt brachial Position Sitting Pulse 91 Pulse Source Pulse Oximeter Pulse Oximetry (%) 96 Oxygen Delivery Method Room Air Intake Visit Reasons: 3 month f/u (meds) Intake Note: Patient is here to follow up on DM, PAD, Neuropathy, HTN. 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 Trust Manager Assistant: Not Required per policy Accompanied by: Self / Same As Patient Allergies No Known Allergies [No Known Allergies*] Allergy (Verified 05/11/23 10:48) Tobacco use date assessed: 05/11/23 Fall risk assessment: No Falls in past year Last assessed Fall Risk: 05/11/23 Dental Screening Dental Screen Date: 05/11/23 Did you have a dental visit in the last 12 months?: Yes Did you have a dental problem in the last 6 months where you did not have access to dental care?: No Was dental information given to patient?: Patient has dentist HPI 3 month f/u (meds) HPI Details 73-year-old male presents to the office to discuss his medical conditions. For the past 3 months patient reports he is having some irritation when he swallows liquids or solids. He is able to keep the fluid and food down. But feels An irritation at the back of the throat. When he was in his 20s, he had some ulcers in the back of his mouth removed. He does not have much details from that time. There is no drooling or regurgitation of food. Blood sugars are slightly elevated. [facility] Medical History Dysphagia Foot pain, right Tremor Neuropathy Lyme disease Goiter Vitamin D deficiency HLD (hyperlipidemia) HTN (hypertension) Tubular adenoma of colon Obesity (BMI 30-39.9) Chronic pain syndrome Pure hypercholesterolemia Benign essential hypertension Type 2 diabetes mellitus with hyperglycemia Surgical History Hx of colonoscopy History of cataract surgery Family History Father No problems noted. Mother No problems noted. Sister In good health Son In good health Social History Housing: House Alcohol intake: current Alcohol intake frequency: does not drink Patient Tobacco Use Status: Current everyday Tobacco user Tobacco use type: Cigarette Cigarettes Per Day: 2 (Pack a week) e-Cigarette/Vaping Use: Never Used Second Hand Smoke Exposure: Yes service: No Current occupational status: retired Cognitive needs: No Hearing needs: No Vision needs: No Questionnaire Thrive Questionnaire Date Thrive assessed: 03/29/23 GARRICK-7 AMB Questionnaire GARRICK-7 Date GARRICK - 7 assessed: 03/29/23 Source: Developed by Drs. Heriberto Gonzalez, Keerthi Reeves, Rolando Wilhelm and colleagues, with an educational murtaza from [employer]. Physical exam (Primary Care) Vital Signs: Last Vital Signs Pulse 91 05/11/23 10:48 BP 124/62 05/11/23 10:48 Pulse Ox 96 05/11/23 10:48 Oxygen Delivery Method Room Air 05/11/23 10:48 BMI result Body Mass Index 28.4 Tobacco/Smoking Status: Tobacco use Status Tobacco use date assessed 05/11/23 05/11/23 10:53 Patient Tobacco Use Status Current everyday Tobacco 05/11/23 10:53 Tobacco use type Cigarette 05/11/23 10:53 e-Cigarette/Vaping Use Never Used 05/11/23 10:53 Thrive Assessment: Date of Thrive Assessment Date Thrive assessed 03/29/23 05/11/23 10:53 Const General: cooperative and healthy appearing Nutritional Appearance: well nourished Orientation/consciousness: patient oriented x3 Limitations: no limitations HENMT Head: Yes normal to inspection Eyes General: appearance normal, both eyes and all related structures Neck Neck: Yes normal visual inspection Chest Chest palpation & inspection: normal palpation of entire chest wall Resp Effort & Inspection: normal respiratory effort Neuro General: patient oriented x3 Assessment and Plan Assessment & Plan (1) Dysphagia: Code(s): R13.10 - Dysphagia, unspecified Plan: Oral cavity examination was unremarkable. A swallowing eval and ENT referral has been scheduled. Orders: Orders FL barium swallow Today R13.10 - Dysphagia, unspecified Referrals Ear/Nose/Throat Referral R13.10 - Dysphagia, unspecified Medications: Refilled tramadol 50 mg PO DAILY 30 tabs 1RF pain Coding Level of Care Code Est Pt Level 4 (11596) Diagnoses Dysphagia R13.10
[2023-05-11 10:48] VITALS: BP 124/62; PULSE 91; O2SAT 96; BMI 28.4
== END 2023-05-11 11:33 | disposition home or self-care (01) ==
PROVIDERS: PCP Internal Medicine; Visit Provider Internal Medicine
DX: R13.10 Dysphagia, unspecified (principal)
CPT/HCPCS: 99214

== ENCOUNTER 2023-07-11 08:40 | Outpatient (REF) | payer MEDICARE, SELFPAY | END 2023-07-11 08:41 | disposition home or self-care (01) | LOC: HO.XRAY 08:40 | PROVIDERS: Visit Provider Internal Medicine | DX: Z13.89 Encounter for screening for other disorder (principal) ==

== ENCOUNTER 2023-08-22 08:19 | Outpatient (REF) | payer MEDICARE, SELFPAY ==
--- NOTE | ~2023-08-22 | CT_ITS ---
EXAMINATION: CT SOFT TISSUE NECK WITH CONTRAST CLINICAL INFORMATION: Right piriform sinus lesion COMPARISON: None. TECHNIQUE: Following the administration of 60 mL of Omnipaque 350 intravenous contrast, helical imaging was performed in the axial plane with generation of coronal and sagittal reformatted images. This CT examination was performed using dose optimization techniques as appropriate, variously including the following: *Automated exposure control. *Adjustment of mA and/or kV according to patient size (this includes techniques or standardized protocols for targeted exams where dose is matched to indication/reason for exam; i.e. extremities or head). *Use of iterative reconstruction technique. DLP: 268 mGy-cm. FINDINGS: Nasopharynx/skull base: The fat planes of the skull base and soft tissues of the nasopharynx are unremarkable. Scattered mild to moderate paranasal sinus inflammatory disease involving the inferior frontal, ethmoid, and maxillary sinuses. The mastoid air cells are well aerated. The temporomandibular joints are normal. Suprahyoid neck: The oropharynx, oral cavity, and bilateral salivary gland tissues are unremarkable. There is a 5 mm cyst in the left vallecula. Infrahyoid neck: The hypopharynx and larynx are unremarkable. No aerodigestive tract mass. Thyroid: The thyroid gland is normal. Lymph nodes: There is no cervical chain lymphadenopathy. Lung apices: There is some mild pleural parenchymal scarring at the lung apices which are otherwise clear. Vascular structures: No hemodynamically significant stenosis, dissection, or occlusion. Test with atherosclerotic disease of the right carotid bifurcation contributes to less than 50% stenosis of the proximal cervical right ICA. Osseous structures: The osseous structures are intact without suspicious focal lesion. 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 Other: The imaged portions of the brain parenchyma are unremarkable. CT/CT soft tissue neck w IV con IMPRESSION: No aerodigestive tract mass is identified including in the region of the right piriform sinus as clinically queried. There is a small left vallecular cyst. No cervical lymphadenopathy.
[2023-08-22] MEDS: iohexoL 350 MG/ML 100 ML INFUS..BTL 60 ML IV (09:10)
[2023-08-23 08:10] LABS: Creatinine POC 0.8 mg/dL (0.5-1.4); GFR POC > 60
== END 2023-08-22 08:20 | disposition home or self-care (01) ==
LOC: HO.CT 08:19
PROVIDERS: PCP Internal Medicine; Visit Provider Otolaryngology
DX: R09.89 Other specified symptoms and signs involving the circulatory and respiratory systems (principal); D49.0 Neoplasm of unspecified behavior of digestive system
CPT/HCPCS: 70491; 82565; Q9967

== ENCOUNTER 2023-10-19 09:57 | Outpatient (AMB) | payer MEDICARE, SELFPAY ==
--- NOTE | 2023-10-19 10:01 | MHC.PC.OV ---
Vital Signs 10/19/23 10:02 Height 5 ft 6 in Weight 166 lb 6 oz BMI 26.9 BP 112/68 Blood Pressure Location Lt brachial Position Sitting Pulse 85 Pulse Source Pulse Oximeter Pulse Oximetry (%) 97 Oxygen Delivery Method Room Air Intake Visit Reasons: 3 Month F/U Intake Note: Patient is here to follow up on PAD, DM, HTN, Chronic Pain. 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: Not Required per policy Accompanied by: Self / Same As Patient Allergies No Known Allergies [No Known Allergies*] Allergy (Verified 10/24/23 18:14) Medication List - Last Reconciled 10/24/23 by Cosmo Napoles MD atorvastatin 40 mg PO DAILY 30 days blood sugar diagnostic As directed blood-glucose meter As directed dulaglutide (Trulicity) 3 mg (0.5 mL) subcut QWEEK 30 days empagliflozin (Jardiance) 25 mg PO DAILY gabapentin 300 mg PO BID glipizide 10 mg PO DAILY lisinopril 5 mg PO DAILY metformin 1,000 mg PO BID tramadol 50 mg PO DAILY Tobacco use date assessed: 10/19/23 Fall risk assessment: No Falls in past year Last assessed Fall Risk: 10/19/23 Dental Screening Dental Screen Date: 05/11/23 HPI 3 Month F/U HPI Details 73-year-old male presents to the office to discuss his chronic medical conditions. Patient believes that the Neurontin is not helping him with his pain in the lower extremities. He would like to increase the tramadol dosage. Patient has constant pain in both his legs. Compliant with his medications and does not check his blood sugar able to function and do all activities of daily living A symptoms of dysphagia that he reported in the last office visit has all resolved. [facility] Medical History Dysphagia Foot pain, right Tremor Neuropathy Lyme disease Goiter Vitamin D deficiency HLD (hyperlipidemia) HTN (hypertension) Tubular adenoma of colon Obesity (BMI 30-39.9) Chronic pain syndrome Pure hypercholesterolemia Benign essential hypertension Type 2 diabetes mellitus with hyperglycemia Surgical History Hx of colonoscopy History of cataract surgery Family History Father No problems noted. Mother No problems noted. Sister In good health Son In good health Social History Housing: House Alcohol intake: current Alcohol intake frequency: does not drink Patient Tobacco Use Status: Current someday Tobacco user Tobacco use type: Cigarette Cigarettes Per Day: 2 (Pack a week) e-Cigarette/Vaping Use: Never Used Second Hand Smoke Exposure: Yes service: No Current occupational status: retired Cognitive needs: No Hearing needs: No Vision needs: No Questionnaire Thrive Questionnaire Date Thrive assessed: 03/29/23 GARRICK-7 AMB Questionnaire GARRICK-7 Date GARRICK - 7 assessed: 03/29/23 Source: Developed by Drs. Heriberto Gonzalez, Keerthi Reeves, Rolando Wilhelm and colleagues, with an educational murtaza from [employer]. Physical exam (Primary Care) Vital Signs: Last Vital Signs Pulse 85 10/19/23 10:02 BP 112/68 10/19/23 10:02 Pulse Ox 97 10/19/23 10:02 Oxygen Delivery Method Room Air 10/19/23 10:02 Care Plan Goal for BP management: Blood pressure is in range. BMI result Body Mass Index 26.9 Tobacco/Smoking Status: Tobacco use Status Tobacco use date assessed 10/19/23 10/19/23 10:09 Patient Tobacco Use Status Current someday Tobacco 10/19/23 10:09 Tobacco use type Cigarette 10/19/23 10:09 e-Cigarette/Vaping Use Never Used 10/19/23 10:09 Are you ready to quit: No Thrive Assessment: Date of Thrive Assessment Date Thrive assessed 03/29/23 10/19/23 10:09 Const General: cooperative and healthy appearing Nutritional Appearance: well nourished Orientation/consciousness: patient oriented x3 Limitations: no limitations HENMT Head: Yes normal to inspection Eyes General: appearance normal, both eyes and all related structures Neck Neck: Yes normal visual inspection Chest Chest palpation & inspection: normal palpation of entire chest wall Resp Effort & Inspection: normal respiratory effort Neuro General: patient oriented x3 Results AMB Hemoglobin A1c AMB Hemoglobin A1c 7.6 % Last Edit by ELIAN Gillette on 10/19/23 10:13 Results Reviewed Results Reviewed: Laboratory Last Values Hgb A1c (Clinic) 7.6 % (4.0-6.0) H 10/19/23 10:00 Assessment and Plan Assessment & Plan (1) Benign essential hypertension: Code(s): I10 - Essential (primary) hypertension Plan: Blood pressure is in range. Continue medications at same dose. (2) Type 2 diabetes mellitus with hyperglycemia: Comment: NIDDM, >10 years Code(s): E11.65 - Type 2 diabetes mellitus with hyperglycemia Qualifiers: Diabetes mellitus prison insulin use: without termite treater helper use Qualified Code(s): E11.65 - Type 2 diabetes mellitus with hyperglycemia Plan: A1c is 7.6. Patient will not take any injectable medications. He does not agreed to change his medications due to cost issues. Understands elevated blood sugars or dangerous for him. He also understands that complications with diabetes can cause worsening lower extremity pain (3) Painful diabetic neuropathy: Code(s): E11.40 - Type 2 diabetes mellitus with diabetic neuropathy, unspecified Plan: Neurontin has been reduced. I have continued the tramadol at once a day. Orders: Orders AMB Hemoglobin A1c 10/19/23 E11.65 - Type 2 diabetes mellitus with hyperglycemia Coding Level of Care Code Est Pt Level 4 (67932) Complex EM visit Add On G2211 Diagnoses Benign essential hypertension I10 Type 2 diabetes mellitus with hyperglycemia, without long-term current use of insulin E11.65 Diabetes mellitus termite treater helper insulin use: without prison use Painful diabetic neuropathy E11.40
[2023-10-19 10:02] VITALS: BP 112/68; PULSE 85; O2SAT 97; BMI 26.9
== END 2023-10-19 10:29 | disposition home or self-care (01) ==
PROVIDERS: PCP Internal Medicine; Visit Provider Internal Medicine
DX: E11.65 Type 2 diabetes mellitus with hyperglycemia (principal)
CPT/HCPCS: 83036; 99214; G2211

== ENCOUNTER 2023-10-21 07:11 | Outpatient (REF) | payer MEDICARE, SELFPAY ==
[2023-10-21 08:20] LABS: Hematocrit 49.6 % (42.0-52.0); Hemoglobin 17.2 g/dl (14.0-18.0); Mean Corpuscular HGB Conc 34.7 g/dl (31.0-36.0); Mean Corpuscular Hemoglobin 32.3 pg (27.0-33.0); Mean Corpuscular Volume 93.2 fL (80.0-98.0); Mean Platelet Volume 9.4 fL (9.4-12.4); Platelet Count 200 X10*3/uL (160-400); Red Blood Count 5.32 X10*6/uL (4.60-5.80); Red Cell Distribution Width 12.2 % (11.0-16.0); White Blood Count 5.5 X10*3/uL (4.8-10.8)
[2023-10-21 08:53] LABS: Alanine Aminotransferase 13 U/L (0-40); Albumin Level 4.3 g/dL (3.5-5.0); Alkaline Phosphatase 70 U/L (39-117); Anion Gap 13 (12-20); Aspartate Amino Transferase 9 U/L (5-37); Bilirubin Direct 0.1 mg/dL (0.0-0.5); Bilirubin Total 0.3 mg/dL (0.0-1.0); Blood Urea Nitrogen 17 mg/dL (9-16); Calcium 9.7 mg/dL (8.4-10.2); Carbon Dioxide 27 mmol/L (22-29); Chloride 108 mmol/L (96-108); Cholesterol 210 mg/dL (<200); Estimated Glomerular Filt Rate > 60; Glucose Random 154 mg/dL (60-115); HDL Cholesterol 38 mg/dL (>40); LDL Cholesterol Calculated 133 mg/dL (<100); Sodium 144 mmol/L (135-145); Total Protein 7.4 g/dL (6.5-8.0); Triglycerides 199 mg/dL (<150)
[2023-10-21 09:10] LABS: Thyroid Stimulating Hormone 1.28 uIU/mL (0.32-4.0)
[2023-10-21 09:41] LABS: Creatinine Urine 66.33 mg/dL
== END 2023-10-21 07:12 | disposition home or self-care (01) ==
LOC: HO.LAB 07:11
PROVIDERS: PCP Internal Medicine; Visit Provider Internal Medicine
DX: E11.40 Type 2 diabetes mellitus with diabetic neuropathy, unspecified (principal); E11.65 Type 2 diabetes mellitus with hyperglycemia
CPT/HCPCS: 36415; 80048; 80061; 80076; 82043; 82570; 84443; 85027

== ENCOUNTER 2024-01-31 08:40 | Outpatient (AMB) | payer MEDICARE, SELFPAY ==
--- NOTE | 2024-01-31 08:53 | MHC.PC.OV ---
Vital Signs 01/31/24 08:54 Height 5 ft 6 in Weight 168 lb BMI 27.1 BP 140/70 H Blood Pressure Location Lt brachial Position Sitting Pulse 88 Pulse Source Pulse Oximeter Pulse Oximetry (%) 98 Oxygen Delivery Method Room Air Intake Visit Reasons: 3 Mo Follow up Intake Note: Patient is here to follow up on DM, PAD, Chronic pain, HTN. 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 per policy Accompanied by: Self / Same As Patient Allergies No Known Allergies [No Known Allergies*] Allergy (Verified 01/31/24 08:54) Tobacco use date assessed: 01/31/24 Fall risk assessment: No Falls in past year Last assessed Fall Risk: 01/31/24 Dental Screening Dental Screen Date: 05/11/23 [facility] Medical History Dysphagia Foot pain, right Tremor Neuropathy Lyme disease Goiter Vitamin D deficiency HLD (hyperlipidemia) HTN (hypertension) Tubular adenoma of colon Obesity (BMI 30-39.9) Chronic pain syndrome Pure hypercholesterolemia Benign essential hypertension Type 2 diabetes mellitus with hyperglycemia Surgical History (Updated 01/31/24 @ 09:14 by Cosmo Napoles MD) Hx of colonoscopy (~04/10/20) History of cataract surgery Family History Father No problems noted. Mother No problems noted. Sister In good health Son In good health Social History Housing: House Alcohol intake: current Alcohol intake frequency: does not drink Patient Tobacco Use Status: Current someday Tobacco user Tobacco use type: Cigarette Cigarettes Per Day: 2 (Pack a week) e-Cigarette/Vaping Use: Never Used Second Hand Smoke Exposure: Yes service: No Current occupational status: retired Cognitive needs: No Hearing needs: No Vision needs: No Questionnaire Thrive Questionnaire Date Thrive assessed: 03/29/23 GARRICK-7 AMB Questionnaire GARRICK-7 Date GARRICK - 7 assessed: 03/29/23 Source: Developed by Drs. Heriberto Gonzalez, Keerthi Reeves, Rolando Wilhelm and colleagues, with an educational murtaza from [employer]. Physical exam (Primary Care) Vital Signs: Last Vital Signs Pulse 88 01/31/24 08:54 BP 140/70 H 01/31/24 08:54 Pulse Ox 98 01/31/24 08:54 Oxygen Delivery Method Room Air 01/31/24 08:54 BMI result Body Mass Index 27.1 Tobacco/Smoking Status: Tobacco use Status Tobacco use date assessed 01/31/24 01/31/24 09:02 Patient Tobacco Use Status Current someday Tobacco 01/31/24 09:02 Tobacco use type Cigarette 01/31/24 09:02 e-Cigarette/Vaping Use Never Used 01/31/24 09:02 Thrive Assessment: Date of Thrive Assessment Date Thrive assessed 03/29/23 01/31/24 09:02 Results AMB Hemoglobin A1c AMB Hemoglobin A1c 6.9 % Last Edit by ELIAN Gillette on 01/31/24 09:05 Results Reviewed Results Reviewed: Laboratory Last Values Hgb A1c (Clinic) 6.9 % (4.0-6.0) H 01/31/24 08:53 Coding Level of Care Code Est Pt Level 4 (38744) Complex EM visit Add On G2211 Diagnoses Benign essential hypertension I10 PAD (peripheral artery disease) I73.9 Type 2 diabetes mellitus with hyperglycemia, without long-term current use of insulin E11.65 Diabetes mellitus half-way insulin use: without half-way use Pure hypercholesterolemia E78.00 Assessment & Plan Assessment & Plan (1) Benign essential hypertension: Code(s): I10 - Essential (primary) hypertension Category: Medical (2) PAD (peripheral artery disease): Code(s): I73.9 - Peripheral vascular disease, unspecified Category: Medical Plan: Condition is stable. (3) Type 2 diabetes mellitus with hyperglycemia: Comment: NIDDM, >10 years Code(s): E11.65 - Type 2 diabetes mellitus with hyperglycemia Category: Medical Qualifiers: Diabetes mellitus half-way insulin use: without half-way use Qualified Code(s): E11.65 - Type 2 diabetes mellitus with hyperglycemia Plan: A1c is in range. Patient was advised to continue glipizide, metformin, Jardiance, Trulicity. (4) Pure hypercholesterolemia: Code(s): E78.00 - Pure hypercholesterolemia, unspecified Category: Medical Plan: Patient refuses to take statins. Risks explained. Plan History of Present Illness The patient is a 73-year-old male presenting with chronic disease management of Type 2 Diabetes Mellitus, Hyperlipidemia, and Essential Hypertension. The patient reports that his Hemoglobin A1c has improved to 6.9, indicating effective management of his diabetes. He is currently taking Trulicity weekly, Metformin, and Jardiance for diabetes but has independently discontinued Glypizide approximately a month ago, stating he felt it was ineffective. Regarding Hyperlipidemia, he ceased taking his prescribed cholesterol medication about a month ago without a specific reason, although his cholesterol levels were noted to be normal during testing done in September. The patient mentioned using garlic as an alternative treatment, acknowledging the cardiovascular risks associated with untreated hyperlipidemia. For Essential Hypertension, the patient continues to take Lisinopril. He expressed his understanding that this medication helps manage his blood pressure and offers protective benefits for his kidneys due to diabetes. Social History - Former occupation in [place]. - No international travels planned; visited [place] seven years ago. - for over 50 years; reports diminished libido. - Enjoys family gatherings, planning for smaller holiday celebrations. Review of Systems - General: Denies any issues with activities of daily living or mobility. - Neurological: Reports discomfort in the legs. - Urological: No issues with urination. - Sleep: Denies any sleep disturbances. Physical Exam General: Cooperative and healthy appearing Nutritional Appearance: Well nourished Orientation/consciousness: Patient oriented x3 Limitations: No limitations Head: Normal to inspection General: Appearance normal, both eyes and all related structures Neck: Normal visual inspection Chest: Normal palpation of entire chest wall Respiratory: Normal respiratory effort Neurology: Patient oriented x3 Results - Labs: Hemoglobin A1c is 6.9. - Diagnostic: Cholesterol levels were normal as of September. Plan Type 2 Diabetes Mellitus: - Continue current medications: Trulicity, Metformin, and Jardiance. Reinstate Glypizide per patient agreement. - Monitor blood glucose levels regularly. Hyperlipidemia: - Patient elects to continue managing with dietary measures using garlic. No pharmacotherapy reinstitution at this time. Essential Hypertension: - Continue Lisinopril as per current regimen. Patient was informed and verbally consented to the use of an ambient scribe for clinic note documentation during this visit. Discussion Notes During the consultation, I discussed with the patient his current management plan for Type 2 Diabetes Mellitus, including the recent improvements in his Hemoglobin A1c. We reviewed his medication regimen, and I advised continuing with Trulicity, Metformin, and Jardiance. He agreed to resume Glypizide for optimal glycemic control. For Hyperlipidemia, the patient has chosen not to resume pharmacological treatment and prefers using garlic as an alternative measure. I emphasized understanding the associated risks of cardiovascular events without medication. Regarding Essential Hypertension, the patient will continue taking Lisinopril, recognizing its benefits for kidney protection and blood pressure management. We also addressed his concern about diminished libido, attributing it to age-related changes. I recommended a follow-up in three months to reassess his cholesterol levels and overall management plan. Patient Instructions - Continue taking Trulicity, Metformin, Jardiance, and Lisinopril as prescribed. - Reintroduce Glypizide to regimen for diabetes management. - Continue with garlic for hyperlipidemia, but ensure understanding of associated risks. - Schedule follow-up consultation in three months. - Regularly monitor blood glucose levels at home. - Maintain current lifestyle, diet, and activity level. Orders: Orders AMB Hemoglobin A1c Today E11.65 - Type 2 diabetes mellitus with hyperglycemia Medications: Discontinued atorvastatin Discontinued Reason: Patient Refused 40 mg PO DAILY 30 days 90 tabs 3RF
[2024-01-31 08:54] VITALS: BP 140/70; PULSE 88; O2SAT 98; BMI 27.1
--- OUTSIDE RECORDS SUMMARY | 2024-01-31 23:05 | XMS_ITS ---
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 Generated for Delorisi prakash/Jovany/eTransmitting on:?01/31/2024 11:04 PM EST
--- OUTSIDE RECORDS SUMMARY | 2024-01-31 23:05 | XMS_ITS ---
Author Organization [facility] jazmyn PlazaPako Address [address] [place] [place] [address] Care Team Providers Care Card Brusher Name Role Phone Zenaida Colindres MD Primary Care Provider Unavaila Simon Adornomie Unavailable [phone] Allergies No Known Allergies REASON FOR VISIT Pcp- 08/2022, Ingrown Nail Medications Medication SIG (Take, Route, Frequency, Duration) Notes Start Date End Date Status traMADol HCl 50 MG 1 tablet as needed O rally Once a day Active Lisinopril 5 MG 1 tablet Orally Once a day for 30 day(s) Active metFORMIN HCl 1000 MG 1 tablet with a me al Orally Once a day for 30 day(s) Active Gabapentin 300 MG 1 capsule Orally Onc e a day for 30 day(s) Active glipiZIDE 10 MG 1 tablet 30 minutes before breakfast Orally Once a day for 30 day(s) Active Atorvastatin Calcium 40 MG 1 tablet Oral ly Once a day for 30 day(s) Active Social History Tobacco Use: Social History Observation Description Date Details (start date - stop date) Former Smoker NA - NA Tobacco Use/Smoking Question Answer Notes Are you a: former smoker Additional Findings: Tobacco Non-User Ex-cigaret te smoker Alcohol Screen Question Answer Notes Did you have a drink containing alcohol in the p ast year? No Points 0 Interpretation Negative Tobacco use other than smoking: Question Answer Notes Are you an other tobacco user? No Vital Signs Height 5 ft 7 in in 08/29/2022 Weight 180 lbs 08/29/2022 BMI 28.19 kg/m2 08/29/2022 Procedures Procedure Date Ordered Date Performed Result Body Sit e 14984-Tycfkqhr Plate 08/29/2022 N/A Encounters Encounter Location Date Provider Diagnosis [facility] [address] [place] [address] 08/29/2022 Yue Orozco Ingrown nail L60.0 a nd Type 2 diabetes mellitus with diabetic polyneuropathy E11.42 Assessments Encounter Date Diagnosis (ICD Code) Assessment Notes Treatment Notes Treatment Clinical Notes Section Notes 08/29/2022 Ingrown nail (ICD-10 - L60.0) 08/29/2022 Type 2 diabetes mellitus with diabetic polyneuropathy (ICD-10 - E11.42) Plan Of Treatment Pending Test Test Name Order Date 11824-Kkfhkcnb Plate 08/29/2022 Next Appt Details Follow Up: 2 Weeks,prn, Reas on: Procedure Notes * Category Sub-Category Detail Notes Nail Avulsion Procedure A fine sterile e levator was placed between the eponychium, nail fold, and nail plate to separate the structures. A sterile nail splitter, and/or sterile 316 blade, was then used to longitudinally section the nail along its entire length through the eponychium to the area under the nail fold. The offending portion of nail was from the nail bed with a rolling action and then removed with a hemostat. No underlying bone was identified. There was minimal bleeding as hemostasis was achieved through the temporary use of either a digital tourniquet or the aforementioned local with epinephrine. A bacitracin sterile dressing was applied. Local wound aftercare instructions were discussed and dispensed. The patient was informed of both conservative and future surgical procedures to prevent recurrence. Tylenol or Motrin was recommended for pain or discomfort (64000) , DIABETES: Matricectomy deferred at this time due to diabetes risk Anesthesia was deferred - NEURO NELY: patient has medically documented neuropathic condition affecting sensation Location Lateral nail border , T5 Progress Notes * Todd MIN ADOB:[birth year] (72 yo M)Acc No.[id number]:08/29/2022 Progress Note Patient:Todd Reis Maria Fernanda Provider:Tariq Orozco DPM :1950???Age:72 Y???Sex:Male Cezar e:08/29/2022 [facility] [place], [id number] Pcp:Zenaida Colindres MD Subjective: * Chief Complaints: * ???Pcp- 08/2022 Ingrown Nail * Medical History:? * Surgical History:?Denies Pas t Surgical History * Hospitalization/Major Diagno stic Procedure:?Denies Past Hospitalization * Family History:?Mother: dece ased.?Father: .? * Social History:?Tobacco Use:?Tobacco Use/Smoking?Are you a:?former smoker ?Additional Findings: Tobacco Non-User?Ex-cigarette smoker ?Tobacco use other than smoking?Are you an other tobacco user??No ???Drugs/Alcohol:?Drugs?Have you used drugs other than those for medical reasons in the past 12 months??No ?Alcohol Screen?Did you have a drink containing alcohol in the past year??No ?Points?0 ?Interpretation?Negative ???Miscellaneous:?Caffeine: yes, 3 cups per day. ?Children: yes, 1. ?Exercise: yes, gardening/yard work, walking. ?Marital status: . ?Occupation: Retired-, [employer]. * Medications:?TakingAtorvasta tin Calcium 40 MG Tablet 1 tablet Orally Once a dayGabapentin 300 MG Capsule 1 capsule Orally Once a dayglipiZIDE 10 MG Tablet 1 tablet 30 minutes before breakfast Orally Once a dayLisinopril 5 MG Tablet 1 tablet Orally Once a daymetFORMIN HCl 1000 MG Tablet 1 tablet with a meal Orally Once a daytraMADol HCl 50 MG Tablet 1 tablet as needed Orally Once a dayMedication List reviewed and reconciled with the patientTaking Atorvastatin Calcium 40 MG Tablet 1 tablet Orally Once a dayTaking Gabapentin 300 MG Capsule 1 capsule Orally Once a dayTaking glipiZIDE 10 MG Tablet 1 tablet 30 minutes before breakfast Orally Once a dayTaking Lisinopril 5 MG Tablet 1 tablet Orally Once a dayTaking metFORMIN HCl 1000 MG Tablet 1 tablet with a meal Orally Once a dayTaking traMADol HCl 50 MG Tablet 1 tablet as needed Orally Once a dayMedication List reviewed and reconciled with the patient * Allergies:?N.K.D.A.yes[Aller gies Verified] Objective: * Vitals:?Ht: 5 ft 7 in, Wt:18 0, BMI:28.19, Shoe size: 10.5, BS: Not taken. * ???Past Orders: ???Lab:HEMOGLOBIN A1C (GLYCO HEMOGLOBIN) (Order Date - 07/08/2021) ? Value Reference Range ?HEMOGLOBIN A1C (HH) 7.2 * Examination: ???Ophthalmology Referral: ?DIABETES EYE EXAM?Ingrown Nail: ?INSPECTION:?Reveals nail incurvation, pain on palpation, groove hypertrophy , groove ischemia , Lateral nail border , T5.?Neurological: ?SENSORY:? Neurological exam demonstrates reduced light touch sensation reduced sharp/dull pin prick discrimination reduced vibration sensation 5.07 monofilament test performed at plantar aspects of 5 varied sites per foot shows sensation reduced B/L.? Assessment: * Assessment: 1.?Type 2 diabetes mellitus with diabetic polyneuropathy - E11.42?2.?Ingrown nail - L60.0? Plan: * Treatment: * Procedures:?Nail Avulsion:?Location?Lateral nail border , T5.?Anesthesia?was deferred - NEUROPATHY: patient has medically documented neuropathic condition affecting sensation.?Procedure?A fine sterile elevator was placed between the eponychium, nail fold, and nail plate to separate the structures. A sterile nail splitter, and/or sterile 316 blade, was then used to longitudinally section the nail along its entire length through the eponychium to the area under the nail fold. The offending portion of nail was from the nail bed with a rolling action and then removed with a hemostat. No underlying bone was identified. There was minimal bleeding as hemostasis was achieved through the temporary use of either a digital tourniquet or the aforementioned local with epinephrine. A bacitracin sterile dressing was applied. Local wound aftercare instructions were discussed and dispensed. The patient was informed of both conservative and future surgical procedures to prevent recurrence. Tylenol or Motrin was recommended for pain or discomfort (19178) , DIABETES: Matricectomy deferred at this time due to diabetes risk.? * Procedure Codes:?53811 Avuls ion Plate, Modifiers: T5 * Follow Up:?2 Weeks,prn * Images: * Sign off status: Completed true * Provider:?Yue Orozco DPM Date:?2022 Generated for Tres randall/Jovany/Vashti on:?01/31/2024 11:04 PM EST History and Physical Notes * Examination Category Sub-Category Detail Notes Category Not es Ingrown Nail INSPECTION: Reveals nail inc urvation, pain on palpation, groove hypertrophy , groove ischemia , Lateral nail border , T5 Neurological SENSORY: Neurological exa m demonstrates reduced light touch sensation reduced sharp/dull pin prick discrimination reduced vibration sensation 5.07 monofilament test performed at plantar aspects of 5 varied sites per foot shows sensation reduced B/L TINEL'S COMPRESSION: DEEP TENDON REFLEXES: Ophthalmology Referral DIABETES EYE EXAM Diabetic Retinopa thy Screening:: No Findings of Diabetic Eye Exam:: no retin opathy
--- OUTSIDE RECORDS SUMMARY | 2024-01-31 23:05 | XMS_ITS | Patient Health Record ---
Author Organization [facility] jazmyn [place] Address [address] [facility] [facility] [place] [address] Care Team Providers Care Baseboard Heating Installer Name Role Phone Zenaida Colindres MD Primary Care Provider Yue Shah Unavailable [phone] Allergies No Known Allergies Results Component Value Reference Range Notes HEMOGLOBIN A1C (GLYCOHEMOGLO BIN) Reviewed date:07/05/2023 11:05:20 AM Interpretation: Performing Lab: Notes/Report: HEMOGLOBIN A1C (HH) 6.7 Reason For Referral No Information Medications Medication SIG (Take, Route, Frequency, Duration) Notes Start Date End Date Status traMADol HCl 50 MG 1 tablet as needed O rally Once a day Active metFORMIN HCl 1000 MG 1 tablet with a me al Orally Once a day for 30 day(s) Active Lisinopril 5 MG 1 tablet Orally Once a day for 30 day(s) Active glipiZIDE 10 MG 1 tablet 30 minutes before breakfast Orally Once a day for 30 day(s) Active Gabapentin 300 MG 1 capsule Orally Onc e a day for 30 day(s) Active Atorvastatin Calcium 40 MG 1 tablet Oral ly Once a day for 30 day(s) Active Immunizations Vaccine Route Administration Date Status Comme nts Influenza Unknown 12/08/2022 Administered Social History Tobacco Use: Social History Observation [...] Are you an other tobacco user? No Problems Problem Type SNOMED Code ICD Code Onset Dates Problem Status W/U Status Risk Notes Problem Polyneuropathy due to type 2 diabetes mellitus (127411081) Type 2 diabetes mellitus with diabetic polyneuropathy (E11.42) Active confirmed Vital Signs Height 5 ft 7 in in 07/05/2023 Weight 180 lbs 07/05/2023 BMI 28.19 kg/m2 07/05/2023 Procedures Procedure Date Ordered Date Performed Result Body Sit e 55717-Lvojagqj Plate 07/05/2023 N/A Encounters Encounter [facility] Date [facility] [address] 07/05/2023 Yue Black Ingrown nail L60.0 a nd Type 2 diabetes mellitus with diabetic polyneuropathy E11.42 [facility] [address] [place] [address] 07/03/2023 Yue Black Assessments Encounter Date Diagnosis (ICD Code) Assessment Notes Treatment Notes Treatment Clinical Notes Section Notes 07/05/2023 Type 2 diabetes mellitus with diabetic polyneuropathy (ICD-10 - E11.42) 07/05/2023 Ingrown nail (ICD-10 - L60.0) Plan Of Treatment Pending Test Test Name Order Date [id number]-Ivqbjpgw Plate 08/29/2022 70919-Jjghboii Plate 07/05/2023 Insurance Providers Payer Name Payer Address Payer Phone Subscriber Number Group Number Insured Name Patient Relationship to Insured Coverage Start Date Coverage End Date [facility] 65 Medicare Preferred [address] [place] [address] [id number] Alek Moore Self - patient is the insured Medical (General) History Medical History History ICD Code Back,Hip,and Knee pain CAD (Cholesterol) Diabetes mellitus Type 2 Surgical History Surgery Date(Month/Year)
--- OUTSIDE RECORDS SUMMARY | 2024-01-31 23:05 | XMS_ITS ---
[facility] Organization [facility] Marixa Plazaley Address [address] [place] [address] Care Team Providers Care Office Coordinator Receptionist Name Role Phone Zenaida Colindres MD Primary Care Provider Unavaila Simon Adornomie Unavailable [phone] Allergies No Known Allergies REASON FOR VISIT Ingrown Nail Medications Medication SIG (Take, Route, [...] Ordered Date Performed Result Body Sit e 11784-Jjhfetzs Plate 07/05/2023 N/A Encounters Encounter Location Date Provider Diagnosis [facility] [place] [address] [facility] [place] [address] 07/05/2023 Yue Orozco Ingrown nail L60.0 a nd Type 2 diabetes mellitus with diabetic polyneuropathy E11.42 Assessments Encounter Date Diagnosis (ICD Code) Assessment Notes Treatment Notes Treatment Clinical Notes Section Notes 07/05/2023 Ingrown nail (ICD-10 - L60.0) 07/05/2023 Type 2 diabetes mellitus with diabetic polyneuropathy (ICD-10 - E11.42) Plan Of Treatment Pending Test Test Name Order Date 19980-Kooqbygl Plate 07/05/2023 Next Appt Details Follow Up: 2 Weeks,prn, [...] Motrin was recommended for pain or discomfort (75339) , , Pt is NOW considering matricectomy Anesthesia was deferred - NEURO NELY: patient has medically documented neuropathic condition affecting sensation Location Lateral nail border , T5 Progress Notes * Todd MIN ADOB:[birth year] (73 yo M)Acc No.[id number]:07/05/2023 Progress Note Patient:?Todd Min Maria Fernanda Provider:?Yue Orozco DPM :1950???Age:73 Y???Sex:Male Cezar e:07/05/2023 [facility] [address] [id number] Pcp:Zenaida Colindres MD Subjective: * Chief Complaints: * ???Ingrown Nail * HPI: ???At Risk footcare:?Pt States Last PCP Visit:?Date?03/03/2023 * Medical History:? * Surgical History:?No Surgica l History documented. * Hospitalization/Major Diagno stic Procedure:?No Hospitalization History. * Family History:?Mother: dece ased.?Father: .? * [...] ?Marital status: . ?Occupation: Retired-, [employer]. * Medications:?TakingAtorvasta tin Calcium 40 MG Tablet [...] Objective: * Vitals:?Ht: 5 ft 7 in, Wt: 1 80, BMI:28.19, Shoe size: 10.5, BS: 170. * ???Past Orders: ???Lab:HEMOGLOBIN A1C (GLYCO HEMOGLOBIN) (Order Date - 02/24/2023) (Collection Date - 02/24/2023) ? Value Reference Range ?HEMOGLOBIN A1C (HH) 6.7 * Examination: ???Ophthalmology Referral: ?DIABETES EYE EXAM?Ingrown [...] Motrin was recommended for pain or discomfort (43303) , , Pt is NOW considering matricectomy.? * Procedure Codes:?50566 Avuls ion Plate, Modifiers: T5 * Follow Up:?2 Weeks,prn * Images: * Sign off status: Completed true * Provider:?Yue Orozco DPM Date:?2023 Generated for Tres randall/Jovany/Brianaitting on:?01/31/2024 11:04 PM EST History and Physical Notes * HPI (History of Present Illness) Category Sub-Category Detail Notes Category Not es At Risk footcare Pt States Last PCP Visit: Date: 4 Examination Category Sub-Category Detail Notes Category Not [...] TENDON REFLEXES: Ophthalmology Referral DIABETES EYE EXAM Diabeti c Retinopathy Screening:: Yes 11/2022
== END 2024-01-31 09:24 | disposition home or self-care (01) ==
PROVIDERS: PCP Internal Medicine; Visit Provider Internal Medicine
DX: I10 Essential (primary) hypertension (principal); I73.9 Peripheral vascular disease, unspecified; E11.65 Type 2 diabetes mellitus with hyperglycemia; E78.00 Pure hypercholesterolemia, unspecified

== ENCOUNTER → 2024-01-31 08:40 | Outpatient (BNVA) | payer MEDICARE, SELFPAY | PROVIDERS: PCP Internal Medicine; Visit Provider Internal Medicine | DX: I10 Essential (primary) hypertension (principal); I73.9 Peripheral vascular disease, unspecified; E78.00 Pure hypercholesterolemia, unspecified; E11.65 Type 2 diabetes mellitus with hyperglycemia | CPT/HCPCS: 83036; 99212 ==

== ENCOUNTER 2024-05-16 08:48 | Outpatient (AMB) | payer MEDICARE, SELFPAY ==
--- NOTE | 2024-05-16 08:51 | MHC.PC.OV ---
Vital Signs 05/16/24 08:53 Height 5 ft 6 in Weight 175 lb 6 oz BMI 28.3 BP 120/68 Blood Pressure Location Lt brachial Position Sitting Pulse 83 Pulse Source Pulse Oximeter Temp 97.5 F Temp Source Temporal Artery Scan Pulse Oximetry (%) 97 Oxygen Delivery Method Room Air Intake Visit Reasons: 3mth f/u Intake Note: Patient is here to follow up on DM, PAD, Chronic pain syndrome. Public Welfare Worker Required: No Chrome Plater: Not Required per policy Accompanied by: Self / Same As Patient Allergies No Known Allergies [No Known Allergies*] Allergy (Verified 05/16/24 08:52) Tobacco use date assessed: 05/16/24 Fall risk assessment: No Falls in past year Last assessed Fall Risk: 05/16/24 Dental Screening Dental Screen Date: 05/16/24 Did you have a dental visit in the last 12 months?: No Did you have a dental problem in the last 6 months where you did not have access to dental care?: No Was dental information given to patient?: Patient has dentist PENDING SALE TO [facility] Medical History Dysphagia Foot pain, right Tremor Neuropathy Lyme disease Goiter Vitamin D deficiency HLD (hyperlipidemia) HTN (hypertension) Tubular adenoma of colon Obesity (BMI 30-39.9) Chronic pain syndrome Pure hypercholesterolemia Benign essential hypertension Type 2 diabetes mellitus with hyperglycemia Surgical History Hx of colonoscopy (~04/10/20) History of cataract surgery Family History Father No problems noted. Mother No problems noted. Sister In good health Son In good health Social History Housing: House Alcohol intake: current Alcohol intake frequency: does not drink Patient Tobacco Use Status: Current someday Tobacco user Tobacco use type: Cigarette Cigarette Packs Per Day: 0.25 Cigarettes Per Day: 2 (Pack a week) e-Cigarette/Vaping Use: Never Used Second Hand Smoke Exposure: Yes service: No Current occupational status: retired Cognitive needs: No Hearing needs: No Vision needs: No Questionnaire PHQ-9 Over the last 2 weeks, how often have you been bothered by any of the following problems? 1. Little interest or pleasure in doing things: not at all 2. Feeling down, depressed, or hopeless: not at all 3. Trouble falling or staying asleep, or sleeping too much: not at all 4. Feeling tired or having little energy: not at all 5. Poor appetite or overeating: not at all 6. Feeling bad about yourself - or that you are a failure or have let yourself or your family down: not at all 7. Trouble concentrating on things, such as reading the newspaper or watching television: not at all 8. Moving or speaking so slowly that other people could have noticed. Or the opposite - being so fidgety or restless that you have been moving around a lot more than usual: not at all 9. Thoughts that you would be better off or of hurting yourself in some way: not at all Total score: 0 Depression Screening Interpretation: Negative Depression Screening Done: Yes Source: Developed by Drs. Heriberto Gonzalez, Keerthi Reeves, Rolando Wilhelm and colleagues, with an educational murtaza from [employer]. Thrive Questionnaire Date Thrive assessed: 05/16/24 I am a: Patient What is your living situation today?: I have a steady place to live Within the past 12 months, did the food you bought not last and you didn't have the money to get more?: Never true Within the past 12 months, did you worry whether your food would run out before you got money to buy more?: Never true Do you have trouble paying for medicines?: No Do you have trouble getting transportation to medical appointments?: No Do you have trouble paying your heating and electricity bill?: No Do you have trouble taking care of your child, family member or friend?: No Do you have trouble with day-to-day activities such as bathing, preparing meals, shopping, managing finances, etc.?: No Are you currently unemployed and looking for a job?: No Are you interested in more education?: No Please select the resources that you would like help with: None Currently or been in a relationship where the following occur: No concerns reported THRIVE Score: 0 AUDIT C Alcohol Use Questionnaire (AUDIT-C) 1. How often do you have a drink containing alcohol?: Never Total Score: 0 GARRICK-7 AMB Questionnaire GARRICK-7 Date GARRICK - 7 assessed: 05/16/24 Feeling nervous, anxious, or on edge: 0 = Not at all Not being able to stop or control worryin = Not at all Worrying too much about different things: 0 = Not at all Trouble relaxin = Not at all Being so restless that it is hard to sit still: 0 = Not at all Becoming easily annoyed or irritable: 0 = Not at all Feeling afraid as if something awful might happen: 0 = Not at all Total GARRICK-7 score (0-4 normal; 5-9 mild; 10-14 moderate; 15-21 severe): 0 Source: Developed by Drs. Heriberto Gonzalez, Keerthi Reeves, Rolando Wilhelm and colleagues, with an educational murtaza from [employer]. Physical exam (Primary Care) Vital Signs: Last Vital Signs Temp 97.5 F 05/16/24 08:53 Pulse 83 05/16/24 08:53 BP 120/68 05/16/24 08:53 Pulse Ox 97 05/16/24 08:53 Oxygen Delivery Method Room Air 05/16/24 08:53 BMI result Body Mass Index 28.3 Tobacco/Smoking Status: Tobacco use Status Tobacco use date assessed 05/16/24 05/16/24 08:59 Patient Tobacco Use Status Current someday Tobacco 05/16/24 08:59 Tobacco use type Cigarette 05/16/24 08:59 e-Cigarette/Vaping Use Never Used 05/16/24 08:59 PHQ-9: PHQ-9 Score PHQ-9: Total score 0 05/16/24 08:59 Depression Screening Interpretation: Negative Thrive Assessment: Date of Thrive Assessment Date Thrive assessed 05/16/24 05/16/24 08:59 Currently or been in a relationship where the following occur: No concerns reported Results AMB Hemoglobin A1c AMB Hemoglobin A1c 7.2 % Last Edit by ELIAN Gillette on 05/16/24 09:20 Results Reviewed Results Reviewed: Laboratory Last Values Hgb A1c (Clinic) 7.2 % (4.0-6.0) H 05/16/24 08:51 Coding Level of Care Code Est Pt Level 4 (00143) Complex EM visit Add On G2211 Diagnoses Type 2 diabetes mellitus with hyperglycemia, without long-term current use of insulin E11.65 Diabetes mellitus terminal block assembler insulin use: without terminal block assembler use PAD (peripheral artery disease) I73.9 Assessment & Plan Assessment & Plan (1) Type 2 diabetes mellitus with hyperglycemia: Comment: NIDDM, >10 years Code(s): E11.65 - Type 2 diabetes mellitus with hyperglycemia Category: Medical Qualifiers: Diabetes mellitus longterm insulin use: without longterm use Qualified Code(s): E11.65 - Type 2 diabetes mellitus with hyperglycemia Plan: Blood work ordered. Continue meds at same dosage (2) PAD (peripheral artery disease): Code(s): I73.9 - Peripheral vascular disease, unspecified Category: Medical Plan: Condition is stable Plan History of Present Illness The patient is a 74-year-old male presenting with complaints of recurrent right knee pain and dizziness. The right knee pain, associated with his known osteoarthritis, has been present intermittently for over three months and affects certain activities such as kneeling. He has been using tramadol for pain management. In addition, he reports episodes of dizziness occasionally; however, his home blood glucose monitoring shows a recent reading of 136 mg/dL. He continues to take his prescribed medications for type 2 diabetes mellitus, including Trulicity injections, and expresses adherence to his medication regimen. Social History - The patient reports his is very energetic. - He participates in presybeterian activities but modifies them due to knee pain, preferring to sit during prayers. - Reports taking steps to control his dietary intake. Review of Systems - Musculoskeletal: Reports recurrent knee pain associated with certain positions. - Neurological: Reports occasional dizziness. - Constitutional: Denies significant changes in energy or fatigue. Physical Exam General: Appearance normal, both eyes and all related structures Nutritional Appearance: Well nourished Orientation/consciousness: Patient oriented x3 Limitations: No limitations Head: Normal to inspection Neck: Normal visual inspection Chest: Normal palpation of entire chest wall Respiratory: Normal respiratory effort Neurology: Patient oriented x3, reports occasional dizziness or cloudiness Results - Labs: Blood glucose reading of 136 mg/dL as reported by the patient. Plan The patient will maintain his current treatment regimen for osteoarthritis, utilizing tramadol for any necessary pain management. Continuation of his diabetes medication, including Trulicity injections, is recommended, with an upcoming A1c test to help assess current glycemic control. For the dizziness, I reassure the patient about his current blood work and advise further monitoring. Scheduled follow-up will be in six months, with instructions to continue his medications and obtain blood work. Patient was informed and verbally consented to the use of an ambient scribe for clinic note documentation during this visit. Discussion Notes During the consultation, I discussed the importance of ongoing medication adherence for management of both osteoarthritis and diabetes. We reviewed the potential side effects of tramadol and Trulicity, emphasizing the need for routine follow-up blood work and glucose monitoring to ensure effective management of his conditions. I advised him to contact the clinic if he experiences any significant changes in symptoms or health, and we agreed on a six-month follow-up schedule. Potential factors contributing to dizziness were addressed with reassurance given his stable metrics today. Patient Instructions - Continue tramadol for occasional knee pain as needed. - Maintain diabetes medication regimen and monitor blood glucose levels at home. - Obtain necessary blood work, including A1c, as directed. - Follow up in six months or sooner if symptoms change or new concerns arise. - Avoid additional strain on the knee by modifying physical activities as needed. Orders: Orders AMB Hemoglobin A1c Today E11.65 - Type 2 diabetes mellitus with hyperglycemia Medications: Refilled tramadol 50 mg PO DAILY 30 tabs 0RF pain
[2024-05-16 08:53] VITALS: BP 120/68; PULSE 83; TEMP 36.4; O2SAT 97; BMI 28.3
--- OUTSIDE RECORDS SUMMARY | 2024-05-16 09:36 | XMS_ITS ---
Author Organization [facility] Address [address] [place] [address] Care Team Providers Care Skin Carver Name Role Phone Zenaida Colindres MD Primary Care Provider Unavaila ble Black, Yue Unavailable [phone] REASON FOR VISIT red ingrown nail Encounters Encounter Location Date Provider Diagnosis [facility] [address] [place] [address] 07/03/2023 Yue Black Plan Of Treatment No Information Progress Notes * Alek MIN ADOB:[birth year] (73 yo M)Acc No.[id number]:07/03/2023 Patient:?Alek Min :1950???Age:73 Y???Sex:Male Address:[address], [place], [address] * true * Date:? Generated for Delorisi prakash/Jovany/eTransmitting on:?05/16/2024 09:36 AM EDT
--- OUTSIDE RECORDS SUMMARY | 2024-05-16 09:36 | XMS_ITS | Patient Health Record ---
Author Organization [facility] jazmyn Dietrich Address [address] [facility] [place] [address] Care Team Providers Care Transformation Architect Name Role Phone Zenaida Colindres MD Primary Care Provider Yue Shah Unavailable [phone] Allergies No Known Allergies Reason For Referral No Information Medications Medication [...] Polyneuropathy due to type 2 diabetes mellitus ([id number]) Type 2 diabetes mellitus with diabetic polyneuropathy (E11.42) Active confirmed Vital Signs Height 5 ft 7 in in 07/05/2023 Weight 180 lbs 07/05/2023 BMI 28.19 kg/m2 07/05/2023 Procedures Procedure Date Ordered Date Performed Result Body Sit e 63281-Iwjhnbgf Plate 07/05/2023 N/A Encounters Encounter Location Date Provider Diagnosis [address] [address] 07/05/2023 Yue Black Ingrown nail L60.0 a nd Type 2 diabetes mellitus with diabetic polyneuropathy E11.42 [facility] [address] [place] [address] 07/03/2023 Yue Black Assessments Encounter Date Diagnosis (ICD Code) Assessment Notes Treatment Notes Treatment Clinical Notes Section Notes 07/05/2023 Type 2 diabetes mellitus with diabetic polyneuropathy (ICD-10 - E11.42) 07/05/2023 Ingrown nail (ICD-10 - L60.0) Plan Of Treatment Pending Test Test Name Order Date [id number]-Nuiuiwoq Plate 08/29/2022 40218-Jcuhozaz Plate 07/05/2023 Insurance Providers Payer Name Payer Address Payer Phone Subscriber Number Group Number Insured Name Patient Relationship to Insured Coverage Start Date Coverage End Date [employer] 65 Medicare Preferred [address] [place] [address] [id number] Alek Moore Self - patient is the insured Medical (General) History Medical History History ICD Code Back,Hip,and Knee pain CAD (Cholesterol) Diabetes mellitus Type 2 Surgical History Surgery Date(Month/Year)
--- OUTSIDE RECORDS SUMMARY | 2024-05-16 09:36 | XMS_ITS ---
[facility] [place] [place] Address [address] [facility] [place] [address] Care Team Providers Care Attendant Lodging Facilities Name Role Phone Zenaida Colindres MD Primary Care Provider Unavaila Simon Adornomie Unavailable [phone] Allergies No Known Allergies REASON FOR VISIT [...] Ordered Date Performed Result Body Sit e 49326-Zkyduazl Plate 07/05/2023 N/A Encounters Encounter Location Date Provider Diagnosis [facility] [place] [address] [facility] [place] [address] 07/05/2023 Yue Orozco Ingrown nail L60.0 a nd Type 2 diabetes mellitus with diabetic polyneuropathy E11.42 Assessments Encounter Date Diagnosis (ICD Code) Assessment Notes Treatment Notes Treatment Clinical Notes Section Notes 07/05/2023 Ingrown nail (ICD-10 - L60.0) 07/05/2023 Type 2 diabetes mellitus with diabetic polyneuropathy (ICD-10 - E11.42) Plan Of Treatment Pending Test Test Name Order Date 90066-Reblladm Plate 07/05/2023 Next Appt Details Follow Up: [...] Motrin was recommended for pain or discomfort (94827) , , Pt is NOW considering matricectomy Anesthesia was deferred - NEURO NELY: patient has medically documented neuropathic condition affecting sensation Location Lateral nail border , T5 Progress Notes * Todd MIN ADOB:[birth year] (74 yo M)Acc No.[id number]:07/05/2023 Progress Note Patient:?Todd MIN Maria Fernanda Provider:?Yue Orozco DPM :1950???Age:73 Y???Sex:Male Cezar e:07/05/2023 [address] [address] [place] Pcp:Zenaida Colindres MD Subjective: * Chief Complaints: [...] ?Marital status: . ?Occupation: Retired-, [employer] [place]. * Medications:?TakingAtorvasta tin Calcium 40 MG Tablet 1 tablet Orally Once a day Gabapentin 300 MG Capsule 1 capsule Orally Once a day glipiZIDE 10 MG Tablet 1 tablet 30 minutes before breakfast Orally Once a day Lisinopril 5 MG Tablet 1 tablet Orally Once a day metFORMIN HCl 1000 MG Tablet 1 tablet with a meal Orally Once a day traMADol HCl 50 MG Tablet 1 tablet as needed Orally Once a day Medication List reviewed and reconciled with the patientTaking Atorvastatin Calcium 40 MG Tablet 1 tablet Orally Once a day Taking Gabapentin 300 MG Capsule 1 capsule Orally Once a day Taking glipiZIDE 10 MG Tablet 1 tablet 30 minutes before breakfast Orally Once a day Taking Lisinopril 5 MG Tablet 1 tablet Orally Once a day Taking metFORMIN HCl 1000 MG Tablet 1 tablet with a meal Orally Once a day Taking traMADol HCl 50 MG Tablet 1 tablet as needed Orally Once a day Medication List reviewed and reconciled with the patient * Allergies:?N.K.D.A.yes[Aller gies Verified] Objective: * Vitals:?Ht: 5 ft 7 in, Wt: 1 80, BMI:28.19, Shoe size: 10.5, BS: 170. * ???Past Orders: ???Lab:HEMOGLOBIN A1C (GLYCO HEMOGLOBIN) (Order Date - 02/24/2023) (Collection Date & Time - 02/24/2023) ? Value Reference Range ?HEMOGLOBIN A1C (HH) 6.7 * Examination: ???Ophthalmology Referral: ?DIABETES EYE EXAM?Diabetic Retinopathy Screening:?Yes 11/2022?Ingrown Nail: ?INSPECTION:?Reveals nail incurvation, pain on palpation, groove hypertrophy , groove ischemia , Lateral nail border , T5.?Neurological: ?SENSORY:? Neurological exam demonstrates reduced light touch sensation reduced sharp/dull pin prick discrimination reduced vibration sensation 5.07 monofilament test performed at plantar aspects of 5 varied sites per foot shows sensation reduced B/L.?General Examination: ?FOOT EXAM:?Lower Extremity Neurological Exam performed:?Yes ?Visual exam of foot performed:?Yes ?Date?07/05/2023 ?Sensory testing performed:?sensations diminished ?Sensory and motor testing performed:?sensations diminished ?Pedal pulse taking performed:?2+??? Assessment: * Assessment: 1.?Type 2 diabetes mellitus with diabetic polyneuropathy - E11.42???2.?Ingrown nail - L60.0??? Plan: * Treatment: * Procedures:?Nail Avulsion:?Location?Lateral nail [...] Motrin was recommended for pain or discomfort (89273) , , Pt is NOW considering matricectomy.? * Procedure Codes:?83824 Avuls ion Plate, Modifiers: T5 * Follow Up:?2 Weeks,prn * Images: * Sign off status: Completed true * Provider:?Yue Orozco DPM Date:?2023 Generated for Tres randall/Jovany/Brianaitting on:?05/16/2024 09:35 AM EDT History and Physical Notes * HPI (History [...] reduced B/L TINEL'S COMPRESSION: DEEP TENDON REFLEXES: General Examination FOOT EXAM: Lower Extrem ity Neurological Exam performed:: Yes Visual exam of foot performed:: Yes Date: 07/05/2023 Sensory testing performed:: sensations d iminished Sensory and motor testing performed:: se nsations diminished Pedal pulse taking performed:: 2+ Ophthalmology Referral DIABETES EYE EXAM Diabeti c Retinopathy Screening:: Yes 11/2022
== END 2024-05-16 09:27 | disposition home or self-care (01) ==
LOC: HO.HMCH 08:49
PROVIDERS: PCP Internal Medicine; Visit Provider Internal Medicine
DX: E11.65 Type 2 diabetes mellitus with hyperglycemia (principal); I73.9 Peripheral vascular disease, unspecified

== ENCOUNTER 2024-05-16 08:48 | Outpatient (REF) | payer MEDICARE, SELFPAY ==
[2024-05-16 10:54] LABS: Hematocrit 49.6 % (42.0-52.0); Hemoglobin 16.9 g/dl (14.0-18.0); Mean Corpuscular HGB Conc 34.1 g/dl (31.0-36.0); Mean Corpuscular Hemoglobin 31.6 pg (27.0-33.0); Mean Corpuscular Volume 92.9 fL (80.0-98.0); Mean Platelet Volume 9.7 fL (9.4-12.4); Platelet Count 211 X10*3/uL (160-400); Red Blood Count 5.34 X10*6/uL (4.60-5.80); Red Cell Distribution Width 12.2 % (11.0-16.0); White Blood Count 6.1 X10*3/uL (4.8-10.8)
[2024-05-16 11:17] LABS: Estimated Average Glucose 163 mg/dL; Hemoglobin A1c % 7.3 % (<6.0)
[2024-05-16 11:36] LABS: Alanine Aminotransferase 15 U/L (0-40); Albumin Level 4.2 g/dL (3.5-5.0); Alkaline Phosphatase 73 U/L (39-117); Anion Gap 11 (12-20); Aspartate Amino Transferase 11 U/L (5-37); Bilirubin Direct 0.1 mg/dL (0.0-0.5); Bilirubin Total 0.3 mg/dL (0.0-1.0); Blood Urea Nitrogen 13 mg/dL (9-16); Calcium 9.4 mg/dL (8.4-10.2); Carbon Dioxide 26 mmol/L (22-29); Chloride 111 mmol/L (96-108); Cholesterol 196 mg/dL (<200); Estimated Glomerular Filt Rate > 60; Glucose Random 131 mg/dL (60-115); HDL Cholesterol 41 mg/dL (>40); LDL Cholesterol Calculated 132 mg/dL (<100); Potassium 4.5 mmol/L (3.3-5.1); Sodium 143 mmol/L (135-145); Thyroid Stimulating Hormone 0.86 uIU/mL (0.32-4.0); Total Protein 7.3 g/dL (6.5-8.0); Triglycerides 116 mg/dL (<150)
== END 2024-05-16 08:49 | disposition home or self-care (01) ==
LOC: HO.LAB 08:48
PROVIDERS: PCP Internal Medicine; Visit Provider Internal Medicine
DX: E11.65 Type 2 diabetes mellitus with hyperglycemia (principal); I73.9 Peripheral vascular disease, unspecified; I10 Essential (primary) hypertension
CPT/HCPCS: 36415; 80048; 80061; 80076; 83036; 84443; 85027; 96127; 99212

== ENCOUNTER 2024-11-14 09:33 | Outpatient (AMB) | payer MEDICARE, SELFPAY ==
--- NOTE | 2024-11-14 09:47 | A.OFFPC_ITS ---
Vital Signs 11/14/24 09:48 Height 5 ft 6 in Weight 167 lb BMI 27.0 BP 126/66 Blood Pressure Location Lt brachial Position Sitting Pulse 88 Pulse Source Pulse Oximeter Temp 97.5 F Temp Source Temporal Artery Scan Pulse Oximetry (%) 96 Oxygen Delivery Method Room Air Intake Visit Reasons: 6 Month F/U - see comments Intake Note: Patient is here to follow up on HTN, HLD, DM. Mill Tender Washing Required: No Card Stripper: Not Required per policy Accompanied by: Self / Same As Patient Allergies No Known Allergies (No Known Allergies*) Allergy (Verified 11/14/24 09:48) Tobacco use date assessed: 11/14/24 Fall risk assessment: No Falls in past year Last assessed Fall Risk: 11/14/24 Dental Screening Dental Screen Date: 05/16/24 [facility] Medical History (Updated 11/14/24 @ 10:25 by Cosmo Napoles MD) Benign prostate hyperplasia Dysphagia Foot pain, right Tremor Neuropathy Lyme disease Goiter Vitamin D deficiency HLD (hyperlipidemia) HTN (hypertension) Tubular adenoma of colon Obesity (BMI 30-39.9) Chronic pain syndrome Pure hypercholesterolemia Benign essential hypertension Type 2 diabetes mellitus with hyperglycemia Surgical History Hx of colonoscopy (~04/10/20) History of cataract surgery Family History Father No problems noted. Mother No problems noted. Sister In good health Son In good health Social History Housing: House Alcohol intake: current Alcohol intake frequency: does not drink Patient Tobacco Use Status: Current someday Tobacco user Tobacco use type: Cigarette Cigarette Packs Per Day: 0.5 Cigarettes Per Day: 10 (Pack a week) e-Cigarette/Vaping Use: Never Used Second Hand Smoke Exposure: Yes service: No Current occupational status: retired Cognitive needs: No Hearing needs: No Vision needs: No Questionnaire Thrive Questionnaire Date Thrive assessed: 05/16/24 GARRICK-7 AMB Questionnaire GARRICK-7 Date GARRICK - 7 assessed: 05/16/24 Source: Developed by Drs. Heriberto Gonzalez, Keerthi ReevesRolando and colleagues, with an educational murtaza from [employer]. Physical exam (Primary Care) Vital Signs: Last Vital Signs Temp 97.5 F 11/14/24 09:48 Pulse 88 11/14/24 09:48 BP 126/66 11/14/24 09:48 Pulse Ox 96 11/14/24 09:48 Oxygen Delivery Method Room Air 11/14/24 09:48 BMI result Body Mass Index 27.0 Tobacco/Smoking Status: Tobacco use Status Tobacco use date assessed 11/14/24 11/14/24 10:01 Patient Tobacco Use Status Current someday Tobacco 11/14/24 10:01 Tobacco use type Cigarette 11/14/24 10:01 e-Cigarette/Vaping Use Never Used 11/14/24 10:01 Thrive Assessment: Date of Thrive Assessment Date Thrive assessed 05/16/24 11/14/24 10:01 Results AMB Hemoglobin A1c AMB Hemoglobin A1c 7.3 % Last Edit by ELIAN Gillette on 11/14/24 10:07 Results Reviewed Results Reviewed: Laboratory Last Values Hgb A1c (Clinic) 7.3 % (4.0-6.0) H 11/14/24 10:06 Coding Level of Care Code Est Pt Level 4 (30973) Complex EM visit Add On G2211 Diagnoses Type 2 diabetes mellitus with hyperglycemia, without long-term current use of insulin E11.65 Diabetes mellitus halfway insulin use: without halfway use Assessment & Plan Assessment & Plan (1) Type 2 diabetes mellitus with hyperglycemia: Comment: NIDDM, >10 years Code(s): E11.65 - Type 2 diabetes mellitus with hyperglycemia Category: Medical Qualifiers: Diabetes mellitus ad terminal makeup operator insulin use: without ad terminal makeup operator use Qualified Code(s): E11.65 - Type 2 diabetes mellitus with hyperglycemia Plan: History of Present Illness - The patient is a 74-year-old male presenting with dizziness, tremor, cough, and urinary urgency. - Dizziness: Reports dizziness primarily in the morning. - Tremor: Describes tremors, especially during interactions with his , causing neck shaking. - Cough: Experiences a severe cough that sometimes forces his to leave the room due to its intensity. - Urinary urgency: Reports an urgency to urinate, not related to delaying urination. - Medication adherence: Currently taking Tramadol, Jardiance, and Trulicity, but has stopped taking Glipizide and Lisinopril. - Preventative care: A PSA test is planned to assess prostate health. Social History - The patient spends his time reading books, particularly enjoying works by a Sabianism author from [place]. Review of Systems - Neurological: Reports dizziness primarily in the morning. Reports tremors, especially during interactions with his . - Respiratory: Reports a severe cough that sometimes forces his to leave the room due to its intensity. - Genitourinary: Reports urgency to urinate, not related to delaying urination. Physical Exam General: Cooperative and healthy appearing Nutritional Appearance: Well nourished Orientation/consciousness: Patient oriented x3 Limitations: No limitations Head: Normal to inspection General: Appearance normal, both eyes and all related structures Neck: Normal visual inspection Chest: Normal palpation of entire chest wall Respiratory: Coughing observed, especially after eating certain foods that irritate the throat. ormal respiratory effort Neurology: Patient oriented x3, but reports tremors in the neck, especially during interactions with his . Tremors are not currently being treated with medication. Results Plan - Plan to conduct a PSA test to assess prostate health. - Discussed the importance of continuing Lisinopril for kidney protection despite the lack of noticeable effects. - Advised against medication for tremors due to previous adverse effects and lack of efficacy. Discussion Notes I discussed with the patient the importance of continuing Lisinopril for kidney protection, even if he does not notice immediate effects. We also talked about the plan to conduct a PSA test to monitor prostate health. I advised against using medication for tremors due to previous adverse effects and lack of efficacy. Patient Instructions - Continue taking Lisinopril as prescribed for kidney protection. - Schedule and complete the PSA test as planned. - Avoid using medication for tremors unless symptoms worsen significantly. Orders: Orders Prostate Specific Antigen Scr Today N40.0 - Benign prostatic hyperplasia without lower urinary tract symptoms AMB Hemoglobin A1c Today E11.65 - Type 2 diabetes mellitus with hyperglycemia Medications: Refilled empagliflozin (Jardiance) 25 mg PO DAILY 90 tabs 1RF metformin Schedule next PCP appt for future refills 1,000 mg PO BID 180 tabs 0RF Discontinued glipizide Discontinued Reason: Doctor's Order 10 mg PO DAILY 90 tabs 1RF
[2024-11-14 09:48] VITALS: BP 126/66; PULSE 88; TEMP 36.4; O2SAT 96; BMI 27.0
--- OUTSIDE RECORDS SUMMARY | 2024-11-14 11:06 | XMS_ITS | Patient Health Record ---
[facility] [place] Address [address] [place] [address] Care Team Providers Care Hat Mender Name Role Phone Zenaida Colindres MD Primary Care Provider Fantasma Yue Adorno Unavailable [phone] Allergies No Known Allergies Reason For Referral No Information Medications Medication SIG (Take, Route, Frequency, Duration) Notes Start Date End Date Status traMADol HCl 50 MG 1 tablet as needed O rally Once a day Active metFORMIN HCl 1000 MG 1 tablet with a me al Orally Once a day; Duration: 30 day(s) Active Lisinopril 5 MG 1 tablet Orally Once a day; Duration: 30 day(s) Active glipiZIDE 10 MG 1 tablet 30 minutes before breakfast Orally Once a day; Duration: 30 day(s) Active Gabapentin 300 MG 1 capsule Orally Onc e a day; Duration: 30 day(s) Active Atorvastatin Calcium 40 MG 1 tablet Oral ly Once a day; Duration: 30 day(s) Active Immunizations Vaccine Route Administration [...] Polyneuropathy due to type 2 diabetes mellitus (455276618) Type 2 diabetes mellitus with diabetic polyneuropathy (E11.42) Active confirmed Plan Of Treatment Pending Test Test Name Order Date [id number] Plate 08/29/2022 [id number] Plate 07/05/2023 Insurance Providers Payer Name Payer Address Payer Phone Subscriber Number Group Number Insured Name Patient Relationship to Insured Coverage Start Date Coverage End Date [employer] 65 Medicare Preferred [address] [place] [address] [id number] Alek Moore Self - patient is the insured Medical (General) History Medical History History ICD Code Back,Hip,and Knee pain CAD (Cholesterol) Diabetes mellitus Type 2 Surgical History Surgery Date(Month/Year)
== END 2024-11-14 10:32 | disposition home or self-care (01) ==
LOC: HO.HMCH 09:34
PROVIDERS: PCP Internal Medicine; Visit Provider Internal Medicine
DX: E11.65 Type 2 diabetes mellitus with hyperglycemia (principal)

== ENCOUNTER → 2024-11-14 09:33 | Outpatient (BNVA) | payer MEDICARE, SELFPAY | PROVIDERS: PCP Internal Medicine; Visit Provider Internal Medicine | DX: E11.65 Type 2 diabetes mellitus with hyperglycemia (principal); R42 Dizziness and giddiness; R25.1 Tremor, unspecified; R05.9 Cough, unspecified; R39.15 Urgency of urination; I10 Essential (primary) hypertension; Z79.899 Other long term (current) drug therapy | CPT/HCPCS: 83036; 99212 ==

== ENCOUNTER 2024-11-15 07:19 | Outpatient (REF) | payer MEDICARE, SELFPAY ==
--- OUTSIDE RECORDS SUMMARY | 2024-11-15 07:23 | XMS_ITS | Patient Health Record ---
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 Name Role Phone Zenaida Colindres MD Primary Care Provider Fantasma Yue Adorno Unavailable [phone] Allergies No Known Allergies Reason For Referral [...] Polyneuropathy due to type 2 diabetes mellitus (266947792) Type 2 diabetes mellitus with diabetic polyneuropathy (E11.42) Active confirmed Plan Of Treatment Pending Test Test Name Order Date [id number] Plate 08/29/2022 [id number] Plate 07/05/2023 Insurance Providers Payer Name Payer Address Payer Phone Subscriber Number Group Number Insured Name Patient Relationship to Insured Coverage Start Date Coverage End Date [employer] 65 Medicare Preferred [address] [place] [address] [id number] Alek Moore Self - patient is the insured Medical (General) History Medical History History ICD Code Back,Hip,and Knee pain CAD (Cholesterol) Diabetes mellitus Type 2 Surgical History Surgery Date(Month/Year)
[2024-11-15 08:28] LABS: Hematocrit 48.3 % (42.0-52.0); Hemoglobin 16.6 g/dl (14.0-18.0); Mean Corpuscular HGB Conc 34.4 g/dl (31.0-36.0); Mean Corpuscular Hemoglobin 31.4 pg (27.0-33.0); Mean Corpuscular Volume 91.5 fL (80.0-98.0); NRBC Abs Auto 0.000 X10*3/uL (0.0-0.012); NRBC Pct Auto 0.0 /100WBC (0.0-0.2); Platelet Count 206 X10*3/uL (160-400); Red Blood Count 5.28 X10*6/uL (4.60-5.80); White Blood Count 5.8 X10*3/uL (4.8-10.8)
[2024-11-15 09:01] LABS: Appearance Urine Clear; Glucose Urine UA >=1000 mg/dL (Negative); PH 5.5 (5.0-9.0); Specific Gravity - Urine >= 1.030 (1.005-1.025); UMIC TRIGGER UA YES
[2024-11-15 09:06] LABS: Microalbum/Creatinine Ratio Ur 8.1 ug/mg cr (<30)
[2024-11-15 09:25] LABS: Alanine Aminotransferase 14 U/L (0-40); Albumin Level 4.3 g/dL (3.5-5.0); Alkaline Phosphatase 78 U/L (39-117); Anion Gap 10 (12-20); Aspartate Amino Transferase 13 U/L (5-37); Blood Urea Nitrogen 20 mg/dL (9-16); Calcium 9.3 mg/dL (8.4-10.2); Carbon Dioxide 27 mmol/L (22-29); Chloride 112 mmol/L (96-108); Cholesterol 199 mg/dL (<200); Estimated Glomerular Filt Rate > 60; HDL Cholesterol 36 mg/dL (>40); Potassium 4.4 mmol/L (3.3-5.1); Sodium 145 mmol/L (135-145); Total Protein 7.0 g/dL (6.5-8.0); Triglycerides 139 mg/dL (<150)
[2024-11-15 09:28] LABS: Thyroid Stimulating Hormone 1.10 uIU/mL (0.32-4.0)
== END 2024-11-15 07:20 | disposition home or self-care (01) ==
LOC: HO.LAB 07:19
PROVIDERS: PCP Internal Medicine; Visit Provider Internal Medicine
DX: N40.0 Benign prostatic hyperplasia without lower urinary tract symptoms (principal); E11.65 Type 2 diabetes mellitus with hyperglycemia; Z12.5 Encounter for screening for malignant neoplasm of prostate
CPT/HCPCS: 36415; 80048; 80061; 80076; 81001; 81003; 82043; 82570; 83036; 84153; 84443; 85027